=== PATIENT | male | born 1970 | race Caucasian/White ===

== ENCOUNTER 2022-06-15 05:37 | Inpatient (IN) ==
[2022-06-08 11:59] LABS: Basophils % 0.9 % (0.0-0.8); Eosinophils % 1.2 % (0.00-10.9); Hematocrit 40.9 VOL% (42.0-52.0); Hemoglobin 14.2 GM/DL (14.0-18.0); Immature Granulocytes % 3.3 %; Immature Granulocytes Absolute 0.11 #; Lymphocytes # 0.6 10*3/uL (1.4-4.0); Lymphocytes % 17.5 % (21.2-54.2); Mean Corpuscular HGB Conc 34.7 GM/DL (32-36); Mean Platelet Volume 10.3 FL (9.6-12.0); Monocytes # 0.8 10*3/uL (0.11-0.8); Neutrophils % 53.1 % (38.7-73.9); Platelet Count 264 T/CUMM (130-400); Red Blood Count 4.26 MC/CUMM (3.8-5.5); Red Cell Distribution Width 15.4 % (9.3-17.3); White Blood Count 3.4 T/CUMM (4-12)
[2022-06-08 12:22] LABS: Calcium 9.4 MG/DL (8.5-10.1); Osmolality,Calculated 284.1 MOS/KG (273-304); Potassium 5.1 MMOL/L (3.5-5.1)
[2022-06-08 12:30] LABS: Eosinophils 3 % (0-10); Lymphocytes 15 % (20-55); Metamyelocytes 1 %; Total Cells Counted 100
[2022-06-08 12:32] LABS: Polychromasia Slight
[2022-06-08 12:33] LABS: Platelet Estimate Normal
[2022-06-15] MEDS ORDERED: ERTAPENEM 1,000 MG in SODIUM CHLORIDE 0.9% 100 ML IV ONE (06:00)
[2022-06-15] MEDS ORDERED: ALVIMOPAN 12 MG CAPSULE PO ONE (06:00)
[2022-06-15] MEDS ORDERED: MIDAZOLAM 2 MG/2 ML VIAL ONE ×2 (06:16→06:52)
[2022-06-15] MEDS ORDERED: propofoL 200 MG/20 ML VIAL IV ONE (06:16)
[2022-06-15] MEDS ORDERED: LIDOCAINE 2% 5 ML VIAL ONE (06:16)
[2022-06-15] MEDS ORDERED: ROCURONIUM 50 MG/5 ML VIAL IV ONE ×2 (06:16→09:57)
[2022-06-15] MEDS ORDERED: fentaNYL 100 MCG/2 ML VIAL ONE ×3 (06:16→09:02)
[2022-06-15] MEDS ORDERED: ROPIVACAINE 0.5% 30 ML VIAL ONE (06:18)
[2022-06-15] MEDS ORDERED: DEXAMETHASONE 4 MG/1 ML VIAL ONE ×2 (06:18→07:31)
[2022-06-15] MEDS ORDERED: LIDOCAINE 1% 5 ML VIAL ONE (06:18)
[2022-06-15] MEDS ORDERED: GABAPENTIN 400 MG CAPSULE PO ONE (06:23)
[2022-06-15] MEDS ORDERED: ACETAMINOPHEN 500 MG TABLET PO ONE (06:23)
[2022-06-15] MEDS ORDERED: FAMOTIDINE 20 MG TABLET PO ONE (06:23)
[2022-06-15] MEDS ORDERED: GABAPENTIN 400 MG CAPSULE ONE (06:26)
[2022-06-15] MEDS ORDERED: FAMOTIDINE 20 MG TABLET ONE (06:27)
[2022-06-15] MEDS ORDERED: ACETAMINOPHEN 500 MG TABLET ONE (06:27)
[2022-06-15] MEDS ORDERED: LACTATED RINGERS 1,000 ML IV SCH (06:30)
[2022-06-15] MEDS ORDERED: ONDANSETRON 4 MG/2 ML VIAL ONE (07:31)
[2022-06-15] MEDS ORDERED: SUCCINYLCHOLINE 200 MG/10 ML VIAL ONE (07:31)
[2022-06-15] MEDS ORDERED: PHENYLEPHRINE 1 MG/10 ML SYRINGE IV ONE (07:31)
[2022-06-15] MEDS ORDERED: LACTATED RINGERS 1,000 ML IV ONE (07:54)
[2022-06-15] MEDS ORDERED: TISSUE ADHESIVE 1 EACH APPLICATOR TOP ONE (08:09)
[2022-06-15] MEDS ORDERED: INDOCYANINE GREEN 25 MG VIAL IV ONE (08:09)
[2022-06-15] MEDS ORDERED: MINERAL OIL/PETROLATUM OPH OINT 3.5 GM TUBE ONE (10:19)
[2022-06-15] MEDS ORDERED: GLYCOPYRROLATE 0.4 MG/2 ML VIAL ONE (11:24)
[2022-06-15] MEDS ORDERED: NEOSTIGMINE 10 MG/10 ML VIAL ONE (11:25)
[2022-06-15] MEDS ORDERED: HYDROmorphone 1 MG/1 ML SYRINGE ONE (11:37)
[2022-06-15] MEDS ORDERED: SUGAMMADEX 200 MG/2 ML VIAL IV ONE (11:37)
[2022-06-15] MEDS ORDERED: SEVOFLURANE 1 UNIT/15 MINUTE INH ONE (11:40)
[2022-06-15 12:10] LABS: Mucus,Urine Occasional /LPF (Occasional); RBC,Urine 1 /HPF (0-4)
[2022-06-15 12:11] LABS: Glucose,Urine (UA) Negative (Negative); Ketones,Urine Negative (Negative); Protein,Urine Negative (Negative); Urine Appearance Clear (Clear); Urine Color Yellow (Yellow); Urine Specific Gravity 1.025 (1.001-1.035); Urine pH 5.5 (4.5-8.0)
[2022-06-15 12:12] LABS: Bilirubin,Urine Negative (Negative); Blood, Urine Negative (Negative); Nitrite,Urine Negative (Negative); Urine Urobilinogen 0.2 eU/dL (<2.0)
[2022-06-15] MEDS ORDERED: HYDROmorphone 1 MG/1 ML SYRINGE IV PRN (12:14)
[2022-06-15] MEDS ORDERED: ONDANSETRON 4 MG/2 ML VIAL IV PRN ×2 (12:14→12:59)
[2022-06-15] MEDS ORDERED: MEPERIDINE 25 MG/1 ML VIAL IV PRN (12:14)
[2022-06-15] MEDS: KETOROLAC 30 MG/1 ML VIAL IV SCH ×2 (13:50→18:23)
[2022-06-15] MEDS: LACTATED RINGERS 1,000 ML IV SCH (13:54)
[2022-06-15] MEDS: HYDROmorphone 1 MG/1 ML SYRINGE IV PRN ×3 (14:29→20:47)
[2022-06-15 14:54] LABS: Basophils % 0.1 % (0.0-0.8); Hematocrit 37.2 VOL% (42.0-52.0); Hemoglobin 12.3 GM/DL (14.0-18.0); Immature Granulocytes % 0.4 %; Immature Granulocytes Absolute 0.04 #; Lymphocytes # 0.2 10*3/uL (1.4-4.0); Lymphocytes % 2.2 % (21.2-54.2); Mean Corpuscular HGB Conc 33.1 GM/DL (32-36); Mean Corpuscular Volume 97.9 FL (87-102); Mean Platelet Volume 10.4 FL (9.6-12.0); Monocytes # 0.5 10*3/uL (0.11-0.8); Monocytes % 5.1 % (1.7-12.7); Neutrophils % 92.2 % (38.7-73.9); Platelet Count 148 T/CUMM (130-400); Red Cell Distribution Width 14.5 % (9.3-17.3); White Blood Count 9.9 T/CUMM (4-12)
[2022-06-15 15:12] LABS: Calcium 8.2 MG/DL (8.5-10.1); Osmolality,Calculated 279.7 MOS/KG (273-304); Potassium 4.1 MMOL/L (3.5-5.1)
[2022-06-15 15:29] LABS: Band Neutrophils 18 % (0-10); Lymphocytes 5 % (20-55); Platelet Estimate Decreased; Total Cells Counted 100
[2022-06-15] MEDS: ALVIMOPAN 12 MG CAPSULE PO SCH (20:47)
[2022-06-16] MEDS: KETOROLAC 30 MG/1 ML VIAL IV SCH ×4 (02:16→17:59)
[2022-06-16] MEDS: LACTATED RINGERS 1,000 ML IV SCH ×2 (02:20→09:06)
[2022-06-16 05:07] LABS: Hematocrit 34.5 VOL% (42.0-52.0); Hemoglobin 11.4 GM/DL (14.0-18.0); Immature Granulocytes % 0.3 %; Immature Granulocytes Absolute 0.02 #; Lymphocytes # 0.4 10*3/uL (1.4-4.0); Lymphocytes % 6.3 % (21.2-54.2); Mean Corpuscular Volume 98.3 FL (87-102); Mean Platelet Volume 10.8 FL (9.6-12.0); Monocytes # 0.6 10*3/uL (0.11-0.8); Monocytes % 8.6 % (1.7-12.7); Neutrophils % 84.8 % (38.7-73.9); Platelet Count 161 T/CUMM (130-400); Red Blood Count 3.51 MC/CUMM (3.8-5.5); Red Cell Distribution Width 14.4 % (9.3-17.3); White Blood Count 6.7 T/CUMM (4-12)
[2022-06-16 05:29] LABS: Calcium 8.2 MG/DL (8.5-10.1); Osmolality,Calculated 278.5 MOS/KG (273-304); Potassium 3.7 MMOL/L (3.5-5.1)
[2022-06-16 05:31] LABS: Band Neutrophils 1 % (0-10); Lymphocytes 2 % (20-55); Platelet Estimate Adequate; Total Cells Counted 100
[2022-06-16] MEDS: HYDROmorphone 1 MG/1 ML SYRINGE IV PRN (06:22)
[2022-06-16] MEDS ORDERED: NALOXONE 0.4 MG/ML VIAL IV PRN (07:45)
[2022-06-16] MEDS: HYDROmorphone PCA 30 MG/30 ML SYRINGE IV SCH (09:03)
[2022-06-16] MEDS: ALVIMOPAN 12 MG CAPSULE PO SCH ×2 (09:06→21:25)
[2022-06-16] MEDS: ENOXAPARIN 40 MG/0.4 ML SYRINGE SUBCUT SCH (09:06)
[2022-06-16] MEDS: METHOCARBAMOL INJ 500 MG in SODIUM CHLORIDE 0.9% 100 ML IV SCH ×2 (09:06→17:02)
[2022-06-17] MEDS: KETOROLAC 30 MG/1 ML VIAL IV SCH ×4 (00:36→17:59)
[2022-06-17] MEDS: METHOCARBAMOL INJ 500 MG in SODIUM CHLORIDE 0.9% 100 ML IV SCH ×4 (00:38→23:39)
[2022-06-17] MEDS: LOPERAMIDE 2 MG CAPSULE PO PRN ×4 (00:40→18:43)
[2022-06-17 05:32] LABS: Basophils % 0.3 % (0.0-0.8); Eosinophils % 0.4 % (0.00-10.9); Hematocrit 32.3 VOL% (42.0-52.0); Hemoglobin 10.6 GM/DL (14.0-18.0); Immature Granulocytes % 0.4 %; Immature Granulocytes Absolute 0.03 #; Lymphocytes # 0.4 10*3/uL (1.4-4.0); Lymphocytes % 4.6 % (21.2-54.2); Mean Corpuscular HGB Conc 32.8 GM/DL (32-36); Mean Corpuscular Volume 100.6 FL (87-102); Mean Platelet Volume 10.2 FL (9.6-12.0); Monocytes # 0.8 10*3/uL (0.11-0.8); Monocytes % 10.8 % (1.7-12.7); Neutrophils % 83.5 % (38.7-73.9); Platelet Count 132 T/CUMM (130-400); Red Blood Count 3.21 MC/CUMM (3.8-5.5); Red Cell Distribution Width 14.2 % (9.3-17.3); White Blood Count 7.7 T/CUMM (4-12)
[2022-06-17 05:50] LABS: Calcium 8.4 MG/DL (8.5-10.1); Osmolality,Calculated 283.3 MOS/KG (273-304); Potassium 3.7 MMOL/L (3.5-5.1)
[2022-06-17 05:55] LABS: Band Neutrophils 2 % (0-10); Hypochromia Slight; Lymphocytes 7 % (20-55); Microcytosis Slight; Platelet Estimate Normal; Total Cells Counted 100
[2022-06-17] MEDS: PSYLLIUM POWDER 3.7 GM/PACK PO SCH ×2 (08:37→21:44)
[2022-06-17] MEDS: ENOXAPARIN 40 MG/0.4 ML SYRINGE SUBCUT SCH (08:38)
[2022-06-17] MEDS: DEXT 5% NACL 0.45% KCL 40 MEQ 40 MEQ/1,000 ML BAG IV SCH (08:43)
[2022-06-18] MEDS: LOPERAMIDE 2 MG CAPSULE PO PRN ×6 (00:27→19:24)
[2022-06-18] MEDS: KETOROLAC 30 MG/1 ML VIAL IV SCH ×4 (00:32→18:03)
[2022-06-18] MEDS: DEXT 5% NACL 0.45% KCL 40 MEQ 40 MEQ/1,000 ML BAG IV SCH (00:33)
[2022-06-18 05:57] LABS: Basophils % 0.4 % (0.0-0.8); Eosinophils # 0.3 10*3/uL (0.0-0.87); Eosinophils % 3.8 % (0.00-10.9); Hematocrit 28.1 VOL% (42.0-52.0); Hemoglobin 9.3 GM/DL (14.0-18.0); Immature Granulocytes % 0.7 %; Immature Granulocytes Absolute 0.05 #; Lymphocytes # 0.4 10*3/uL (1.4-4.0); Lymphocytes % 5.4 % (21.2-54.2); Mean Corpuscular HGB Conc 33.1 GM/DL (32-36); Mean Corpuscular Volume 100.4 FL (87-102); Mean Platelet Volume 10.4 FL (9.6-12.0); Monocytes # 0.9 10*3/uL (0.11-0.8); Monocytes % 13.7 % (1.7-12.7); Platelet Count 119 T/CUMM (130-400); White Blood Count 6.8 T/CUMM (4-12)
[2022-06-18 06:12] LABS: Calcium 8.1 MG/DL (8.5-10.1); Osmolality,Calculated 277.5 MOS/KG (273-304)
[2022-06-18] MEDS: HYDROmorphone PCA 30 MG/30 ML SYRINGE IV SCH ×2 (07:14→19:58)
[2022-06-18] MEDS: METHOCARBAMOL INJ 500 MG in SODIUM CHLORIDE 0.9% 100 ML IV SCH ×2 (08:31→17:06)
[2022-06-18] MEDS: ENOXAPARIN 40 MG/0.4 ML SYRINGE SUBCUT SCH (08:31)
[2022-06-18] MEDS: PSYLLIUM POWDER 3.7 GM/PACK PO SCH ×2 (08:47→20:30)
[2022-06-19] MEDS: KETOROLAC 30 MG/1 ML VIAL IV SCH ×4 (01:03→18:00)
[2022-06-19] MEDS: METHOCARBAMOL INJ 500 MG in SODIUM CHLORIDE 0.9% 100 ML IV SCH ×3 (01:05→17:23)
[2022-06-19] MEDS: PSYLLIUM POWDER 3.7 GM/PACK PO SCH ×2 (09:11→20:43)
[2022-06-19] MEDS: ENOXAPARIN 40 MG/0.4 ML SYRINGE SUBCUT SCH (09:11)
[2022-06-19] MEDS ORDERED: HYDROmorphone 1 MG/1 ML SYRINGE IV PRN (09:55)
[2022-06-19] MEDS: HYDROmorphone PCA 30 MG/30 ML SYRINGE IV SCH (10:58)
[2022-06-19] MEDS ORDERED: ZALEPLON 5 MG CAPSULE PO PRN (20:11)
[2022-06-20] MEDS: METHOCARBAMOL INJ 500 MG in SODIUM CHLORIDE 0.9% 100 ML IV SCH ×3 (01:25→17:57)
[2022-06-20] MEDS: KETOROLAC 30 MG/1 ML VIAL IV SCH ×2 (01:25→07:36)
[2022-06-20 06:41] LABS: Basophils % 0.2 % (0.0-0.8); Eosinophils # 0.3 10*3/uL (0.0-0.87); Eosinophils % 3.6 % (0.00-10.9); Hematocrit 27.6 VOL% (42.0-52.0); Hemoglobin 9.1 GM/DL (14.0-18.0); Immature Granulocytes % 1.2 %; Immature Granulocytes Absolute 0.11 #; Lymphocytes # 0.4 10*3/uL (1.4-4.0); Lymphocytes % 4.4 % (21.2-54.2); Mean Corpuscular Volume 97.9 FL (87-102); Mean Platelet Volume 9.5 FL (9.6-12.0); Monocytes # 1.4 10*3/uL (0.11-0.8); Monocytes % 14.9 % (1.7-12.7); Neutrophils % 75.7 % (38.7-73.9); Platelet Count 173 T/CUMM (130-400); Red Blood Count 2.82 MC/CUMM (3.8-5.5); Red Cell Distribution Width 13.6 % (9.3-17.3); White Blood Count 9.5 T/CUMM (4-12)
[2022-06-20 06:53] LABS: Calcium 8.3 MG/DL (8.5-10.1); Potassium 3.6 MMOL/L (3.5-5.1)
[2022-06-20 07:20] LABS: Eosinophils 4 % (0-10); Lymphocytes 4 % (20-55); Platelet Estimate Adequate; Total Cells Counted 100
[2022-06-20] MEDS: PSYLLIUM POWDER 3.7 GM/PACK PO SCH ×2 (08:45→20:23)
[2022-06-20] MEDS: ENOXAPARIN 40 MG/0.4 ML SYRINGE SUBCUT SCH (08:46)
[2022-06-21] MEDS: METHOCARBAMOL INJ 500 MG in SODIUM CHLORIDE 0.9% 100 ML IV SCH ×2 (00:06→09:36)
[2022-06-21] MEDS: ENOXAPARIN 40 MG/0.4 ML SYRINGE SUBCUT SCH ×2 (09:36→10:27)
[2022-06-21] MEDS: PSYLLIUM POWDER 3.7 GM/PACK PO SCH (09:37)
[2022-06-21 11:36] VITALS: BP 124/72
== END 2022-06-21 14:10 | disposition home or self-care (01) | DRG 330 ==
LOC: N.OR 05:37 → N.ADMINP 05:37 → N.SDSINP 05:38 → N.ADMINP 11:47 → N.3E 13:31
PROVIDERS: ADMIT Surgery; ATTEND Surgery

== ENCOUNTER 2022-06-22 23:46 | Inpatient (IN) ==
[2022-06-23] MEDS ORDERED: ONDANSETRON 4 MG/2 ML VIAL IV STA (00:12)
[2022-06-23] MEDS ORDERED: PANTOPRAZOLE 40 MG VIAL IV STA (00:12)
[2022-06-23] MEDS ORDERED: HYDROmorphone 1 MG/1 ML SYRINGE IV STA ×2 (00:12→02:10)
[2022-06-23] MEDS ORDERED: SODIUM CHLORIDE 0.9% 1,000 ML IV STA (00:12)
[2022-06-23 00:42] LABS: Basophils % 0.3 % (0.0-0.8); Eosinophils # 0.2 10*3/uL (0.0-0.87); Eosinophils % 1.7 % (0.00-10.9); Hematocrit 35.7 VOL% (42.0-52.0); Hemoglobin 12.1 GM/DL (14.0-18.0); Immature Granulocytes % 1.7 %; Immature Granulocytes Absolute 0.22 #; Lymphocytes # 0.5 10*3/uL (1.4-4.0); Lymphocytes % 3.6 % (21.2-54.2); Mean Corpuscular HGB Conc 33.9 GM/DL (32-36); Mean Corpuscular Volume 96.2 FL (87-102); Mean Platelet Volume 8.9 FL (9.6-12.0); Monocytes % 7.6 % (1.7-12.7); Neutrophils % 85.1 % (38.7-73.9); Platelet Count 352 T/CUMM (130-400); Red Blood Count 3.71 MC/CUMM (3.8-5.5); Red Cell Distribution Width 14.1 % (9.3-17.3); White Blood Count 12.9 T/CUMM (4-12)
[2022-06-23] MEDS ORDERED: SODIUM CHLORIDE 0.9% 100 ML IV ONE (00:48)
[2022-06-23] MEDS ORDERED: PIPERACILLIN/TAZOBACTAM 3,375 MG VIAL IV ONE (00:48)
[2022-06-23 00:57] LABS: Albumin 2.9 G/DL (3.4-5.0); Bilirubin,Total 0.5 MG/DL (0.20-1.00); Calcium 9.5 MG/DL (8.5-10.1); Osmolality,Calculated 275.8 MOS/KG (273-304); Potassium 4.1 MMOL/L (3.5-5.1); Total Protein 7.1 G/DL (6.4-8.2)
[2022-06-23 01:23] LABS: Eosinophils 1 % (0-10); Lymphocytes 4 % (20-55); Platelet Estimate Adequate; Total Cells Counted 100
[2022-06-23] MEDS ORDERED: PIPERACILLIN/TAZOBACTAM 3,375 MG in SODIUM CHLORIDE 0.9% 100 ML IV STA (01:58)
[2022-06-23] MEDS ORDERED: ACETAMINOPHEN 325 MG TABLET PO PRN (03:11)
[2022-06-23] MEDS ORDERED: ONDANSETRON 4 MG/2 ML VIAL IV PRN (03:11)
[2022-06-23] MEDS: HYDROmorphone 1 MG/1 ML SYRINGE IV PRN ×6 (04:20→23:37)
[2022-06-23] MEDS: SODIUM CHLORIDE 0.9% 1,000 ML IV SCH ×4 (04:30→19:06)
[2022-06-23 05:47] LABS: Bilirubin,Urine Negative (Negative); Blood, Urine Negative (Negative); Glucose,Urine (UA) Negative (Negative); Ketones,Urine 15 mg/dL (Negative); Mucus,Urine Occasional /LPF (Occasional); Nitrite,Urine Negative (Negative); Protein,Urine Negative (Negative); RBC,Urine <1 /HPF (0-4); Urine Appearance Clear (Clear); Urine Color Yellow (Yellow); Urine Specific Gravity 1.015 (1.001-1.035); Urine Urobilinogen 0.2 eU/dL (<2.0); Urine pH 5.5 (4.5-8.0)
[2022-06-23] MEDS ORDERED: PIPERACILLIN/TAZOBACTAM 3,375 MG in SODIUM CHLORIDE 0.9% 100 ML IV SCH (09:00)
[2022-06-23] MEDS: PANTOPRAZOLE 40 MG VIAL IV SCH (09:08)
[2022-06-23 09:16] LABS: Basophils % 0.3 % (0.0-0.8); Eosinophils # 0.2 10*3/uL (0.0-0.87); Eosinophils % 1.5 % (0.00-10.9); Hematocrit 29.5 VOL% (42.0-52.0); Hemoglobin 9.7 GM/DL (14.0-18.0); Immature Granulocytes % 0.9 %; Lymphocytes # 0.5 10*3/uL (1.4-4.0); Lymphocytes % 3.9 % (21.2-54.2); Mean Corpuscular HGB Conc 32.9 GM/DL (32-36); Mean Corpuscular Volume 97.7 FL (87-102); Mean Platelet Volume 8.8 FL (9.6-12.0); Monocytes # 0.9 10*3/uL (0.11-0.8); Monocytes % 7.5 % (1.7-12.7); Neutrophils % 85.9 % (38.7-73.9); Platelet Count 317 T/CUMM (130-400); Red Blood Count 3.02 MC/CUMM (3.8-5.5); White Blood Count 11.5 T/CUMM (4-12)
[2022-06-23 09:31] LABS: Eosinophils 1 % (0-10); Hypochromia Slight; Lymphocytes 6 % (20-55); Microcytosis Slight; Platelet Estimate Adequate; Total Cells Counted 100
[2022-06-23 09:32] LABS: Alanine Aminotransferase 38 U/L (16-61); Albumin 2.3 G/DL (3.4-5.0); Alkaline Phosphatase 73 U/L (45-117); Aspartate Amino Transferase 24 U/L (0-37); Bilirubin,Total < 0.39 MG/DL (0.20-1.00); Blood Urea Nitrogen 16 MG/DL (7-18); Calcium 8.5 MG/DL (8.5-10.1); Carbon Dioxide 26 MMOL/L (21-32); Chloride 109 MMOL/L (98-107); Glucose 126 MG/DL (74-106); Osmolality,Calculated 281.4 MOS/KG (273-304); Potassium 4.1 MMOL/L (3.5-5.1); Sodium 140 MMOL/L (136-145); Total Protein 6.5 G/DL (6.4-8.2)
[2022-06-23 12:53] LABS: Hematocrit 30.2 VOL% (42.0-52.0); Hemoglobin 9.8 GM/DL (14.0-18.0)
[2022-06-23] MEDS ORDERED: diphenhydrAMINE 25 MG/10 ML UDCUP PO PRN (12:56)
[2022-06-24] MEDS: HYDROmorphone 1 MG/1 ML SYRINGE IV PRN ×6 (01:33→21:34)
[2022-06-24] MEDS: SODIUM CHLORIDE 0.9% 1,000 ML IV SCH ×4 (01:34→23:30)
[2022-06-24 05:42] LABS: Basophils % 0.2 % (0.0-0.8); Eosinophils # 0.2 10*3/uL (0.0-0.87); Eosinophils % 1.6 % (0.00-10.9); Hemoglobin 8.7 GM/DL (14.0-18.0); Immature Granulocytes % 0.7 %; Lymphocytes # 0.5 10*3/uL (1.4-4.0); Lymphocytes % 3.3 % (21.2-54.2); Mean Corpuscular HGB Conc 32.2 GM/DL (32-36); Mean Corpuscular Volume 100.7 FL (87-102); Monocytes # 0.9 10*3/uL (0.11-0.8); Monocytes % 6.4 % (1.7-12.7); Neutrophils % 87.8 % (38.7-73.9); Platelet Count 331 T/CUMM (130-400); Red Blood Count 2.68 MC/CUMM (3.8-5.5); Red Cell Distribution Width 14.5 % (9.3-17.3); White Blood Count 14.6 T/CUMM (4-12)
[2022-06-24 06:00] LABS: Calcium 8.1 MG/DL (8.5-10.1); Osmolality,Calculated 281.3 MOS/KG (273-304); Potassium 3.9 MMOL/L (3.5-5.1)
[2022-06-24 06:03] LABS: Band Neutrophils 1 % (0-10); Eosinophils 2 % (0-10); Hypochromia Slight; Microcytosis Slight; Platelet Estimate Adequate; Total Cells Counted 100
[2022-06-24] MEDS: PANTOPRAZOLE 40 MG VIAL IV SCH (08:22)
[2022-06-24] MEDS: PIPERACILLIN/TAZOBACTAM 3,375 MG in SODIUM CHLORIDE 0.9% 100 ML IV SCH ×2 (09:20→17:25)
[2022-06-25] MEDS: PIPERACILLIN/TAZOBACTAM 3,375 MG in SODIUM CHLORIDE 0.9% 100 ML IV SCH ×4 (00:16→19:44)
[2022-06-25] MEDS: HYDROmorphone 1 MG/1 ML SYRINGE IV PRN ×6 (00:44→23:27)
[2022-06-25] MEDS: SODIUM CHLORIDE 0.9% 1,000 ML IV SCH ×6 (01:51→21:01)
[2022-06-25 04:59] LABS: Basophils % 0.3 % (0.0-0.8); Eosinophils # 0.3 10*3/uL (0.0-0.87); Eosinophils % 2.1 % (0.00-10.9); Hematocrit 26.4 VOL% (42.0-52.0); Hemoglobin 8.4 GM/DL (14.0-18.0); Immature Granulocytes % 1.3 %; Immature Granulocytes Absolute 0.16 #; Lymphocytes # 0.4 10*3/uL (1.4-4.0); Lymphocytes % 3.5 % (21.2-54.2); Mean Corpuscular HGB Conc 31.8 GM/DL (32-36); Mean Corpuscular Volume 100.4 FL (87-102); Mean Platelet Volume 8.8 FL (9.6-12.0); Monocytes # 0.8 10*3/uL (0.11-0.8); Monocytes % 6.4 % (1.7-12.7); Neutrophils % 86.4 % (38.7-73.9); Platelet Count 351 T/CUMM (130-400); Red Blood Count 2.63 MC/CUMM (3.8-5.5); Red Cell Distribution Width 14.1 % (9.3-17.3); White Blood Count 12.5 T/CUMM (4-12)
[2022-06-25 05:24] LABS: Calcium 8.2 MG/DL (8.5-10.1); Osmolality,Calculated 276.5 MOS/KG (273-304); Potassium 3.7 MMOL/L (3.5-5.1)
[2022-06-25 05:36] LABS: Eosinophils 3 % (0-10); Hypochromia Slight; Lymphocytes 2 % (20-55); Platelet Estimate Adequate; Total Cells Counted 100
[2022-06-25] MEDS: PANTOPRAZOLE 40 MG VIAL IV SCH (09:13)
[2022-06-26] MEDS: PIPERACILLIN/TAZOBACTAM 3,375 MG in SODIUM CHLORIDE 0.9% 100 ML IV SCH ×3 (01:34→18:07)
[2022-06-26] MEDS: SODIUM CHLORIDE 0.9% 1,000 ML IV SCH ×4 (02:01→18:12)
[2022-06-26] MEDS: HYDROmorphone 1 MG/1 ML SYRINGE IV PRN ×4 (03:40→20:43)
[2022-06-26 07:23] LABS: Basophils % 0.3 % (0.0-0.8); Eosinophils # 0.1 10*3/uL (0.0-0.87); Hematocrit 29.3 VOL% (42.0-52.0); Hemoglobin 9.3 GM/DL (14.0-18.0); Immature Granulocytes % 1.4 %; Immature Granulocytes Absolute 0.15 #; Lymphocytes # 0.5 10*3/uL (1.4-4.0); Lymphocytes % 4.3 % (21.2-54.2); Mean Corpuscular HGB Conc 31.7 GM/DL (32-36); Mean Corpuscular Volume 100.3 FL (87-102); Mean Platelet Volume 8.6 FL (9.6-12.0); Monocytes # 0.7 10*3/uL (0.11-0.8); Platelet Count 425 T/CUMM (130-400); Red Blood Count 2.92 MC/CUMM (3.8-5.5); White Blood Count 10.9 T/CUMM (4-12)
[2022-06-26 07:54] LABS: Band Neutrophils 1 % (0-10); Lymphocytes 2 % (20-55); Metamyelocytes 1 %; Total Cells Counted 100
[2022-06-26] MEDS: PANTOPRAZOLE 40 MG VIAL IV SCH (09:39)
[2022-06-27] MEDS: SODIUM CHLORIDE 0.9% 1,000 ML IV SCH ×4 (00:07→20:30)
[2022-06-27] MEDS: PIPERACILLIN/TAZOBACTAM 3,375 MG in SODIUM CHLORIDE 0.9% 100 ML IV SCH ×3 (00:08→16:07)
[2022-06-27] MEDS: HYDROmorphone 1 MG/1 ML SYRINGE IV PRN ×6 (01:03→22:59)
[2022-06-27 04:59] LABS: Basophils # 0.1 10*3/uL (0.0-0.2); Basophils % 0.6 % (0.0-0.8); Eosinophils # 0.1 10*3/uL (0.0-0.87); Eosinophils % 1.1 % (0.00-10.9); Hematocrit 30.9 VOL% (42.0-52.0); Immature Granulocytes % 1.8 %; Immature Granulocytes Absolute 0.16 #; Lymphocytes # 0.6 10*3/uL (1.4-4.0); Lymphocytes % 6.5 % (21.2-54.2); Mean Corpuscular HGB Conc 32.4 GM/DL (32-36); Mean Corpuscular Volume 98.4 FL (87-102); Mean Platelet Volume 9.2 FL (9.6-12.0); Monocytes # 0.7 10*3/uL (0.11-0.8); Platelet Count 550 T/CUMM (130-400); Red Blood Count 3.14 MC/CUMM (3.8-5.5); Red Cell Distribution Width 13.8 % (9.3-17.3)
[2022-06-27] MEDS: PANTOPRAZOLE 40 MG VIAL IV SCH (08:56)
[2022-06-28] MEDS: PIPERACILLIN/TAZOBACTAM 3,375 MG in SODIUM CHLORIDE 0.9% 100 ML IV SCH (01:11)
[2022-06-28] MEDS: HYDROmorphone 1 MG/1 ML SYRINGE IV PRN ×5 (01:16→21:49)
[2022-06-28] MEDS: SODIUM CHLORIDE 0.9% 1,000 ML IV SCH (06:34)
[2022-06-28] MEDS: ENOXAPARIN 40 MG/0.4 ML SYRINGE SUBCUT SCH (09:57)
[2022-06-28] MEDS: CEFUROXIME 500 MG TABLET PO SCH ×2 (09:57→20:21)
[2022-06-28] MEDS: PANTOPRAZOLE 40 MG VIAL IV SCH (09:57)
[2022-06-29] MEDS: HYDROmorphone 1 MG/1 ML SYRINGE IV PRN ×6 (00:56→23:15)
[2022-06-29 05:03] LABS: Basophils # 0.1 10*3/uL (0.0-0.2); Basophils % 0.8 % (0.0-0.8); Eosinophils # 0.1 10*3/uL (0.0-0.87); Eosinophils % 1.3 % (0.00-10.9); Hematocrit 26.3 VOL% (42.0-52.0); Hemoglobin 8.5 GM/DL (14.0-18.0); Immature Granulocytes % 1.8 %; Immature Granulocytes Absolute 0.11 #; Lymphocytes # 0.6 10*3/uL (1.4-4.0); Lymphocytes % 9.8 % (21.2-54.2); Mean Corpuscular HGB Conc 32.3 GM/DL (32-36); Mean Corpuscular Volume 97.4 FL (87-102); Mean Platelet Volume 8.8 FL (9.6-12.0); Monocytes # 0.7 10*3/uL (0.11-0.8); Neutrophils % 74.3 % (38.7-73.9); Platelet Count 560 T/CUMM (130-400); Red Cell Distribution Width 13.6 % (9.3-17.3); White Blood Count 6.2 T/CUMM (4-12)
[2022-06-29 05:15] LABS: Calcium 8.5 MG/DL (8.5-10.1); Osmolality,Calculated 277.3 MOS/KG (273-304); Potassium 3.5 MMOL/L (3.5-5.1)
[2022-06-29] MEDS: ENOXAPARIN 40 MG/0.4 ML SYRINGE SUBCUT SCH (08:37)
[2022-06-29] MEDS: CEFUROXIME 500 MG TABLET PO SCH ×2 (08:37→20:03)
[2022-06-29] MEDS: PANTOPRAZOLE 40 MG VIAL IV SCH (08:38)
[2022-06-29] MEDS: TAMSULOSIN 0.4 MG CAPSULE PO SCH ×2 (12:51→20:03)
[2022-06-29] MEDS: oxyCODONE/ACETAMINOPHEN 5-325 MG TABLET PO PRN (12:51)
[2022-06-30] MEDS: HYDROmorphone 1 MG/1 ML SYRINGE IV PRN ×3 (04:11→17:57)
[2022-06-30] MEDS: PANTOPRAZOLE 40 MG VIAL IV SCH (08:05)
[2022-06-30] MEDS: TAMSULOSIN 0.4 MG CAPSULE PO SCH ×2 (08:05→21:00)
[2022-06-30] MEDS: CEFUROXIME 500 MG TABLET PO SCH ×2 (08:05→21:00)
[2022-06-30] MEDS: ENOXAPARIN 40 MG/0.4 ML SYRINGE SUBCUT SCH (08:05)
[2022-06-30] MEDS: oxyCODONE/ACETAMINOPHEN 5-325 MG TABLET PO PRN ×3 (08:05→21:00)
[2022-07-01] MEDS: HYDROmorphone 1 MG/1 ML SYRINGE IV PRN ×2 (00:37→11:44)
[2022-07-01] MEDS: oxyCODONE/ACETAMINOPHEN 5-325 MG TABLET PO PRN ×2 (04:50→09:35)
[2022-07-01] MEDS: CEFUROXIME 500 MG TABLET PO SCH (09:35)
[2022-07-01] MEDS: TAMSULOSIN 0.4 MG CAPSULE PO SCH (09:36)
[2022-07-01] MEDS: ENOXAPARIN 40 MG/0.4 ML SYRINGE SUBCUT SCH (09:36)
[2022-07-01] MEDS: PANTOPRAZOLE 40 MG VIAL IV SCH (09:36)
[2022-07-01 12:12] VITALS: BP 121/64
== END 2022-07-01 15:20 | disposition home or self-care (01) | DRG 394 ==
LOC: N.ED 23:46 → N.EDINP 06-23 02:02 → N.2E 06-23 12:32
PROVIDERS: ADMIT Surgery; ATTEND Surgery

== ENCOUNTER 2022-07-09 16:52 | Inpatient (IN) ==
[2022-07-09] MEDS ORDERED: PANTOPRAZOLE 40 MG VIAL IV STA (19:45)
[2022-07-09] MEDS ORDERED: SODIUM CHLORIDE 0.9% 1,000 ML IV STA (19:45)
[2022-07-09] MEDS ORDERED: HYDROmorphone 1 MG/1 ML SYRINGE IV STA (19:45)
[2022-07-09] MEDS ORDERED: ONDANSETRON 4 MG/2 ML VIAL IV STA (19:45)
[2022-07-09] MEDS ORDERED: METOCLOPRAMIDE 10 MG/2 ML VIAL IV STA (19:45)
[2022-07-09 19:53] LABS: Basophils % 0.4 % (0.0-0.8); Eosinophils % 0.3 % (0.00-10.9); Hematocrit 31.2 VOL% (42.0-52.0); Immature Granulocytes % 0.5 %; Immature Granulocytes Absolute 0.04 #; Lymphocytes # 0.6 10*3/uL (1.4-4.0); Lymphocytes % 7.9 % (21.2-54.2); Mean Corpuscular HGB Conc 32.1 GM/DL (32-36); Mean Corpuscular Volume 94.8 FL (87-102); Mean Platelet Volume 8.4 FL (9.6-12.0); Monocytes # 1.1 10*3/uL (0.11-0.8); Monocytes % 13.9 % (1.7-12.7); Platelet Count 354 T/CUMM (130-400); Red Blood Count 3.29 MC/CUMM (3.8-5.5); Red Cell Distribution Width 14.6 % (9.3-17.3); White Blood Count 7.6 T/CUMM (4-12)
[2022-07-09 20:16] LABS: Alanine Aminotransferase 33 U/L (16-61); Albumin 3.1 G/DL (3.4-5.0); Alkaline Phosphatase 93 U/L (45-117); Aspartate Amino Transferase 14 U/L (0-37); Bilirubin,Total < 0.39 MG/DL (0.20-1.00); Blood Urea Nitrogen 17 MG/DL (7-18); Calcium 9.7 MG/DL (8.5-10.1); Carbon Dioxide 28 MMOL/L (21-32); Chloride 103 MMOL/L (98-107); Glucose 97 MG/DL (74-106); Osmolality,Calculated 278.5 MOS/KG (273-304); Potassium 4.3 MMOL/L (3.5-5.1); Sodium 139 MMOL/L (136-145); Total Protein 7.5 G/DL (6.4-8.2)
[2022-07-09] MEDS ORDERED: cefOXitin 1,000 MG in SODIUM CHLORIDE 0.9% 100 ML IV STA (22:13)
[2022-07-09] MEDS ORDERED: ACETAMINOPHEN 325 MG TABLET PO PRN (22:15)
[2022-07-09] MEDS ORDERED: ONDANSETRON 4 MG/2 ML VIAL IV PRN (22:15)
[2022-07-09] MEDS: HYDROmorphone 1 MG/1 ML SYRINGE IV PRN (22:49)
[2022-07-09] MEDS: LACTATED RINGERS 1,000 ML IV SCH (23:37)
[2022-07-10] MEDS: HYDROmorphone 1 MG/1 ML SYRINGE IV PRN ×5 (02:45→20:12)
[2022-07-10 06:18] LABS: Basophils % 0.3 % (0.0-0.8); Eosinophils % 0.5 % (0.00-10.9); Hematocrit 27.7 VOL% (42.0-52.0); Hemoglobin 8.9 GM/DL (14.0-18.0); Immature Granulocytes % 0.5 %; Immature Granulocytes Absolute 0.03 #; Lymphocytes # 0.6 10*3/uL (1.4-4.0); Lymphocytes % 9.6 % (21.2-54.2); Mean Corpuscular HGB Conc 32.1 GM/DL (32-36); Mean Corpuscular Volume 94.5 FL (87-102); Mean Platelet Volume 8.5 FL (9.6-12.0); Monocytes # 0.9 10*3/uL (0.11-0.8); Neutrophils % 75.1 % (38.7-73.9); Platelet Count 322 T/CUMM (130-400); Red Blood Count 2.93 MC/CUMM (3.8-5.5); Red Cell Distribution Width 14.6 % (9.3-17.3); White Blood Count 6.6 T/CUMM (4-12)
[2022-07-10 06:34] LABS: Calcium 9.4 MG/DL (8.5-10.1); Osmolality,Calculated 275.5 MOS/KG (273-304); Potassium 4.1 MMOL/L (3.5-5.1)
[2022-07-10] MEDS: LACTATED RINGERS 1,000 ML IV SCH ×4 (07:37→16:04)
[2022-07-10] MEDS: PANTOPRAZOLE 40 MG TABLET PO SCH (08:23)
[2022-07-10] MEDS: oxyCODONE/ACETAMINOPHEN 5-325 MG TABLET PO PRN ×3 (08:51→17:35)
[2022-07-10] MEDS: DICYCLOMINE 10 MG CAPSULE PO SCH ×4 (08:51→20:08)
[2022-07-10] MEDS ORDERED: LIDOCAINE 2% TOP JELLY 20 ML VIAL INTRAURETH PRN (09:45)
[2022-07-10] MEDS: TAMSULOSIN 0.4 MG CAPSULE PO SCH ×2 (10:30→20:12)
[2022-07-10 13:11] LABS: Bilirubin,Urine Negative (Negative); Blood, Urine Negative (Negative); Glucose,Urine (UA) Negative (Negative); Ketones,Urine Negative (Negative); Nitrite,Urine Negative (Negative); Protein,Urine Negative (Negative); Urine Appearance Clear (Clear); Urine Color Yellow (Yellow); Urine Urobilinogen 0.2 eU/dL (<2.0); Urine pH 7.5 (4.5-8.0)
[2022-07-10 13:14] LABS: Amorphous Crystals,Urine Occasional /HPF (Few); Mucus,Urine Occasional /LPF (Occasional); RBC,Urine 20 /HPF (0-4)
[2022-07-11] MEDS: HYDROmorphone 1 MG/1 ML SYRINGE IV PRN ×6 (00:30→22:27)
[2022-07-11] MEDS: oxyCODONE/ACETAMINOPHEN 5-325 MG TABLET PO PRN ×4 (02:13→20:31)
[2022-07-11] MEDS: LACTATED RINGERS 1,000 ML IV SCH ×4 (02:13→23:52)
[2022-07-11 05:52] LABS: Basophils % 0.3 % (0.0-0.8); Eosinophils # 0.1 10*3/uL (0.0-0.87); Eosinophils % 1.2 % (0.00-10.9); Hematocrit 25.9 VOL% (42.0-52.0); Hemoglobin 8.2 GM/DL (14.0-18.0); Immature Granulocytes % 0.3 %; Immature Granulocytes Absolute 0.02 #; Lymphocytes # 0.5 10*3/uL (1.4-4.0); Lymphocytes % 7.4 % (21.2-54.2); Mean Corpuscular HGB Conc 31.7 GM/DL (32-36); Mean Corpuscular Volume 93.8 FL (87-102); Mean Platelet Volume 8.6 FL (9.6-12.0); Monocytes # 0.9 10*3/uL (0.11-0.8); Monocytes % 12.4 % (1.7-12.7); Neutrophils % 78.4 % (38.7-73.9); Platelet Count 323 T/CUMM (130-400); Red Blood Count 2.76 MC/CUMM (3.8-5.5); Red Cell Distribution Width 14.7 % (9.3-17.3); White Blood Count 7.3 T/CUMM (4-12)
[2022-07-11 06:11] LABS: Alanine Aminotransferase 30 U/L (16-61); Albumin 2.6 G/DL (3.4-5.0); Alkaline Phosphatase 91 U/L (45-117); Aspartate Amino Transferase 16 U/L (0-37); Bilirubin,Total < 0.39 MG/DL (0.20-1.00); Blood Urea Nitrogen 12 MG/DL (7-18); Calcium 9.2 MG/DL (8.5-10.1); Carbon Dioxide 26 MMOL/L (21-32); Chloride 106 MMOL/L (98-107); Glucose 118 MG/DL (74-106); Osmolality,Calculated 275.7 MOS/KG (273-304); Potassium 3.9 MMOL/L (3.5-5.1); Sodium 138 MMOL/L (136-145); Total Protein 7.3 G/DL (6.4-8.2)
[2022-07-11] MEDS: DICYCLOMINE 10 MG CAPSULE PO SCH ×4 (09:05→20:32)
[2022-07-11] MEDS: TAMSULOSIN 0.4 MG CAPSULE PO SCH ×2 (09:05→20:32)
[2022-07-11] MEDS: PANTOPRAZOLE 40 MG TABLET PO SCH (09:05)
[2022-07-12] MEDS: oxyCODONE/ACETAMINOPHEN 5-325 MG TABLET PO PRN ×3 (01:30→20:54)
[2022-07-12] MEDS: HYDROmorphone 1 MG/1 ML SYRINGE IV PRN ×4 (02:42→22:22)
[2022-07-12] MEDS: PANTOPRAZOLE 40 MG TABLET PO SCH (10:34)
[2022-07-12] MEDS: LACTATED RINGERS 1,000 ML IV SCH ×3 (10:34→22:26)
[2022-07-12] MEDS: TAMSULOSIN 0.4 MG CAPSULE PO SCH ×2 (10:34→20:53)
[2022-07-12] MEDS: DICYCLOMINE 10 MG CAPSULE PO SCH ×4 (10:34→20:53)
[2022-07-12] MEDS ORDERED: MIDAZOLAM 2 MG/2 ML VIAL IV ONE (11:03)
[2022-07-12] MEDS ORDERED: fentaNYL 100 MCG/2 ML VIAL IV ONE (11:03)
[2022-07-12] MEDS ORDERED: DIAZEPAM 5 MG TABLET PO ONE (11:03)
[2022-07-12] MEDS ORDERED: SODIUM CHLORIDE 0.45% 1,000 ML IV SCH (11:30)
[2022-07-13] MEDS: HYDROmorphone 1 MG/1 ML SYRINGE IV PRN ×6 (01:31→21:14)
[2022-07-13] MEDS: LACTATED RINGERS 1,000 ML IV SCH (07:14)
[2022-07-13] MEDS: PANTOPRAZOLE 40 MG TABLET PO SCH (08:00)
[2022-07-13] MEDS: DICYCLOMINE 10 MG CAPSULE PO SCH ×4 (08:00→21:12)
[2022-07-13] MEDS: oxyCODONE/ACETAMINOPHEN 5-325 MG TABLET PO PRN ×4 (08:30→22:59)
[2022-07-13] MEDS ORDERED: NALOXONE 0.4 MG/ML VIAL IV PRN (16:37)
[2022-07-13] MEDS ORDERED: HYDROmorphone PCA 30 MG/30 ML SYRINGE IV SCH (17:00)
[2022-07-13] MEDS ORDERED: HYDROmorphone 1 MG/1 ML SYRINGE IM PRN (20:39)
[2022-07-13] MEDS: TAMSULOSIN 0.4 MG CAPSULE PO SCH (21:12)
[2022-07-14] MEDS: HYDROmorphone 1 MG/1 ML SYRINGE IV PRN ×7 (03:07→23:09)
[2022-07-14] MEDS: oxyCODONE/ACETAMINOPHEN 5-325 MG TABLET PO PRN ×5 (04:45→22:11)
[2022-07-14] MEDS: PANTOPRAZOLE 40 MG TABLET PO SCH (09:18)
[2022-07-14] MEDS: DICYCLOMINE 10 MG CAPSULE PO SCH ×4 (09:18→20:14)
[2022-07-14] MEDS: CIPROFLOXACIN INJ 400 MG/200 ML PREMIX IV SCH (14:32)
[2022-07-14] MEDS: TAMSULOSIN 0.4 MG CAPSULE PO SCH (20:14)
[2022-07-14] MEDS: LOPERAMIDE 2 MG CAPSULE PO PRN (20:16)
[2022-07-15] MEDS: CIPROFLOXACIN INJ 400 MG/200 ML PREMIX IV SCH (02:47)
[2022-07-15] MEDS: HYDROmorphone 1 MG/1 ML SYRINGE IV PRN ×7 (02:55→22:26)
[2022-07-15] MEDS: oxyCODONE/ACETAMINOPHEN 5-325 MG TABLET PO PRN ×3 (04:32→17:53)
[2022-07-15] MEDS: PANTOPRAZOLE 40 MG TABLET PO SCH (08:21)
[2022-07-15] MEDS: DICYCLOMINE 10 MG CAPSULE PO SCH ×4 (08:21→21:01)
[2022-07-15] MEDS: CIPROFLOXACIN 500 MG TABLET PO SCH ×2 (09:39→16:03)
[2022-07-15] MEDS: LOPERAMIDE 2 MG CAPSULE PO PRN (16:05)
[2022-07-15] MEDS: GABAPENTIN 100 MG CAPSULE PO SCH (21:00)
[2022-07-15] MEDS: TAMSULOSIN 0.4 MG CAPSULE PO SCH (21:01)
[2022-07-15] MEDS: MORPHINE ER 30 MG TABLET PO SCH (21:01)
[2022-07-16] MEDS: oxyCODONE/ACETAMINOPHEN 5-325 MG TABLET PO PRN ×4 (00:32→22:57)
[2022-07-16] MEDS: HYDROmorphone 1 MG/1 ML SYRINGE IV PRN ×7 (01:29→20:42)
[2022-07-16] MEDS: PANTOPRAZOLE 40 MG TABLET PO SCH (09:25)
[2022-07-16] MEDS: DICYCLOMINE 10 MG CAPSULE PO SCH ×4 (09:25→21:02)
[2022-07-16] MEDS: TAMSULOSIN 0.4 MG CAPSULE PO SCH ×2 (09:25→21:02)
[2022-07-16] MEDS: MORPHINE ER 30 MG TABLET PO SCH ×2 (09:25→21:03)
[2022-07-16] MEDS: GABAPENTIN 100 MG CAPSULE PO SCH ×3 (09:25→21:03)
[2022-07-16] MEDS: CIPROFLOXACIN 500 MG TABLET PO SCH ×2 (09:25→16:18)
[2022-07-16] MEDS ORDERED: MORPHINE ER 30 MG TABLET PO ONE (11:30)
[2022-07-17] MEDS: HYDROmorphone 1 MG/1 ML SYRINGE IV PRN ×6 (04:31→20:39)
[2022-07-17] MEDS: oxyCODONE/ACETAMINOPHEN 5-325 MG TABLET PO PRN ×4 (06:25→22:45)
[2022-07-17] MEDS: TAMSULOSIN 0.4 MG CAPSULE PO SCH ×2 (08:41→21:43)
[2022-07-17] MEDS: PANTOPRAZOLE 40 MG TABLET PO SCH (08:41)
[2022-07-17] MEDS: GABAPENTIN 100 MG CAPSULE PO SCH ×3 (08:41→21:43)
[2022-07-17] MEDS: MORPHINE ER 30 MG TABLET PO SCH ×2 (08:41→21:43)
[2022-07-17] MEDS: CIPROFLOXACIN 500 MG TABLET PO SCH ×2 (08:41→16:00)
[2022-07-17] MEDS: DICYCLOMINE 10 MG CAPSULE PO SCH ×4 (08:42→21:43)
[2022-07-18] MEDS: HYDROmorphone 1 MG/1 ML SYRINGE IV PRN ×6 (00:35→22:11)
[2022-07-18] MEDS: MORPHINE ER 30 MG TABLET PO SCH ×2 (08:07→22:12)
[2022-07-18] MEDS: GABAPENTIN 100 MG CAPSULE PO SCH ×3 (08:07→22:12)
[2022-07-18] MEDS: oxyCODONE/ACETAMINOPHEN 5-325 MG TABLET PO PRN ×3 (08:07→20:36)
[2022-07-18] MEDS: TAMSULOSIN 0.4 MG CAPSULE PO SCH ×2 (08:07→22:12)
[2022-07-18] MEDS: DICYCLOMINE 10 MG CAPSULE PO SCH ×4 (08:07→22:12)
[2022-07-18] MEDS: CIPROFLOXACIN 500 MG TABLET PO SCH ×2 (08:07→16:14)
[2022-07-18] MEDS: PANTOPRAZOLE 40 MG TABLET PO SCH (08:07)
[2022-07-19] MEDS: HYDROmorphone 1 MG/1 ML SYRINGE IV PRN ×5 (02:13→22:06)
[2022-07-19] MEDS: CIPROFLOXACIN 500 MG TABLET PO SCH ×2 (08:34→17:04)
[2022-07-19] MEDS: PANTOPRAZOLE 40 MG TABLET PO SCH (08:34)
[2022-07-19] MEDS: DICYCLOMINE 10 MG CAPSULE PO SCH ×4 (08:34→21:01)
[2022-07-19] MEDS: TAMSULOSIN 0.4 MG CAPSULE PO SCH ×2 (08:34→21:02)
[2022-07-19] MEDS: MORPHINE ER 30 MG TABLET PO SCH ×2 (08:34→21:02)
[2022-07-19] MEDS: GABAPENTIN 100 MG CAPSULE PO SCH (08:35)
[2022-07-19] MEDS: oxyCODONE/ACETAMINOPHEN 5-325 MG TABLET PO PRN ×3 (08:38→19:51)
[2022-07-19] MEDS ORDERED: MORPHINE ER 30 MG TABLET PO ONE (12:30)
[2022-07-19] MEDS: GABAPENTIN 300 MG CAPSULE PO SCH ×2 (15:50→21:02)
[2022-07-19] MEDS: LOPERAMIDE 2 MG CAPSULE PO PRN (22:23)
[2022-07-20] MEDS: HYDROmorphone 1 MG/1 ML SYRINGE IV PRN ×5 (02:48→23:45)
[2022-07-20] MEDS: GABAPENTIN 300 MG CAPSULE PO SCH ×3 (08:57→20:43)
[2022-07-20] MEDS: DICYCLOMINE 10 MG CAPSULE PO SCH ×4 (08:57→20:42)
[2022-07-20] MEDS: CIPROFLOXACIN 500 MG TABLET PO SCH ×2 (08:58→17:26)
[2022-07-20] MEDS: PANTOPRAZOLE 40 MG TABLET PO SCH (08:58)
[2022-07-20] MEDS: oxyCODONE/ACETAMINOPHEN 5-325 MG TABLET PO PRN ×3 (08:58→22:05)
[2022-07-20] MEDS: TAMSULOSIN 0.4 MG CAPSULE PO SCH ×2 (08:58→20:42)
[2022-07-20] MEDS: MORPHINE ER 30 MG TABLET PO SCH ×2 (08:59→20:43)
[2022-07-20] MEDS: LOPERAMIDE 2 MG CAPSULE PO PRN ×3 (09:02→19:15)
[2022-07-21] MEDS: oxyCODONE/ACETAMINOPHEN 5-325 MG TABLET PO PRN ×4 (01:59→20:05)
[2022-07-21] MEDS: LOPERAMIDE 2 MG CAPSULE PO PRN ×4 (02:13→20:05)
[2022-07-21] MEDS: HYDROmorphone 1 MG/1 ML SYRINGE IV PRN ×4 (04:05→22:18)
[2022-07-21] MEDS: GABAPENTIN 300 MG CAPSULE PO SCH ×3 (09:28→20:04)
[2022-07-21] MEDS: DICYCLOMINE 10 MG CAPSULE PO SCH ×4 (09:28→20:05)
[2022-07-21] MEDS: MORPHINE ER 30 MG TABLET PO SCH ×2 (09:28→21:14)
[2022-07-21] MEDS: TAMSULOSIN 0.4 MG CAPSULE PO SCH ×2 (09:28→20:04)
[2022-07-21] MEDS: ERTAPENEM 1,000 MG in SODIUM CHLORIDE 0.9% 100 ML IV SCH (09:32)
[2022-07-21] MEDS: PANTOPRAZOLE 40 MG TABLET PO SCH (13:04)
[2022-07-21] MEDS ORDERED: KETOROLAC 30 MG/1 ML VIAL IV ONE (17:41)
[2022-07-21] MEDS ORDERED: HYDROmorphone 1 MG/1 ML SYRINGE IV ONE (17:41)
[2022-07-22] MEDS: oxyCODONE/ACETAMINOPHEN 5-325 MG TABLET PO PRN ×4 (00:28→23:01)
[2022-07-22] MEDS: HYDROmorphone 1 MG/1 ML SYRINGE IV PRN ×4 (04:33→19:50)
[2022-07-22] MEDS: DICYCLOMINE 10 MG CAPSULE PO SCH ×4 (09:22→21:14)
[2022-07-22] MEDS: PANTOPRAZOLE 40 MG TABLET PO SCH (09:22)
[2022-07-22] MEDS: LOPERAMIDE 2 MG CAPSULE PO PRN ×4 (09:23→21:25)
[2022-07-22] MEDS: ERTAPENEM 1,000 MG in SODIUM CHLORIDE 0.9% 100 ML IV SCH (09:23)
[2022-07-22] MEDS: MORPHINE ER 30 MG TABLET PO SCH ×2 (09:23→21:14)
[2022-07-22] MEDS: TAMSULOSIN 0.4 MG CAPSULE PO SCH ×2 (09:23→21:14)
[2022-07-22] MEDS: GABAPENTIN 300 MG CAPSULE PO SCH ×3 (09:23→21:14)
[2022-07-23] MEDS: DICYCLOMINE 10 MG CAPSULE PO SCH ×4 (09:40→21:20)
[2022-07-23] MEDS: BACILLUS COAGULANS CAPLET PO SCH (09:40)
[2022-07-23] MEDS: GABAPENTIN 300 MG CAPSULE PO SCH ×3 (09:40→21:20)
[2022-07-23] MEDS: MORPHINE ER 30 MG TABLET PO SCH ×2 (09:40→21:20)
[2022-07-23] MEDS: PANTOPRAZOLE 40 MG TABLET PO SCH (09:40)
[2022-07-23] MEDS: TAMSULOSIN 0.4 MG CAPSULE PO SCH ×2 (09:40→21:20)
[2022-07-23] MEDS: ERTAPENEM 1,000 MG in SODIUM CHLORIDE 0.9% 100 ML IV SCH (09:41)
[2022-07-23] MEDS: HYDROmorphone 1 MG/1 ML SYRINGE IV PRN ×3 (10:49→20:21)
[2022-07-23] MEDS: LOPERAMIDE 2 MG CAPSULE PO PRN ×2 (14:11→22:42)
[2022-07-23] MEDS: oxyCODONE/ACETAMINOPHEN 5-325 MG TABLET PO PRN ×3 (14:11→22:59)
[2022-07-24] MEDS: LOPERAMIDE 2 MG CAPSULE PO PRN ×8 (00:27→23:50)
[2022-07-24] MEDS: HYDROmorphone 1 MG/1 ML SYRINGE IV PRN ×6 (00:27→23:26)
[2022-07-24] MEDS: oxyCODONE/ACETAMINOPHEN 5-325 MG TABLET PO PRN ×3 (06:42→16:20)
[2022-07-24] MEDS: GABAPENTIN 300 MG CAPSULE PO SCH ×3 (08:20→21:45)
[2022-07-24] MEDS: MORPHINE ER 30 MG TABLET PO SCH ×2 (08:21→21:45)
[2022-07-24] MEDS: PANTOPRAZOLE 40 MG TABLET PO SCH (08:21)
[2022-07-24] MEDS: TAMSULOSIN 0.4 MG CAPSULE PO SCH ×2 (08:21→21:45)
[2022-07-24] MEDS: BACILLUS COAGULANS CAPLET PO SCH (08:21)
[2022-07-24] MEDS: DICYCLOMINE 10 MG CAPSULE PO SCH ×4 (08:22→21:45)
[2022-07-24] MEDS: ERTAPENEM 1,000 MG in SODIUM CHLORIDE 0.9% 100 ML IV SCH (08:26)
[2022-07-24] MEDS ORDERED: KETOROLAC 30 MG/1 ML VIAL IV PRN (14:24)
[2022-07-24] MEDS ORDERED: HYDROmorphone 1 MG/1 ML SYRINGE IV PRN (14:25)
[2022-07-24] MEDS: diphenhydrAMINE CAP 25 MG CAPSULE PO PRN (19:19)
[2022-07-25] MEDS: LOPERAMIDE 2 MG CAPSULE PO PRN ×2 (03:31→06:06)
[2022-07-25] MEDS: HYDROmorphone 1 MG/1 ML SYRINGE IV PRN ×5 (03:32→21:43)
[2022-07-25] MEDS: oxyCODONE/ACETAMINOPHEN 5-325 MG TABLET PO PRN ×2 (06:07→19:59)
[2022-07-25 08:52] LABS: Basophils % 0.3 % (0.0-0.8); Eosinophils # 0.1 10*3/uL (0.0-0.87); Eosinophils % 1.2 % (0.00-10.9); Hematocrit 26.5 VOL% (42.0-52.0); Hemoglobin 8.3 GM/DL (14.0-18.0); Immature Granulocytes % 1.1 %; Immature Granulocytes Absolute 0.08 #; Lymphocytes # 0.4 10*3/uL (1.4-4.0); Lymphocytes % 5.6 % (21.2-54.2); Mean Corpuscular HGB Conc 31.3 GM/DL (32-36); Mean Corpuscular Volume 90.8 FL (87-102); Mean Platelet Volume 8.2 FL (9.6-12.0); Monocytes # 0.9 10*3/uL (0.11-0.8); Neutrophils % 79.8 % (38.7-73.9); Platelet Count 457 T/CUMM (130-400); Red Blood Count 2.92 MC/CUMM (3.8-5.5); Red Cell Distribution Width 16.4 % (9.3-17.3); White Blood Count 7.3 T/CUMM (4-12)
[2022-07-25 09:04] LABS: Calcium 9.2 MG/DL (8.5-10.1); Potassium 4.3 MMOL/L (3.5-5.1)
[2022-07-25] MEDS: GABAPENTIN 300 MG CAPSULE PO SCH ×3 (09:34→21:43)
[2022-07-25] MEDS: DICYCLOMINE 10 MG CAPSULE PO SCH ×4 (09:34→21:43)
[2022-07-25] MEDS: BACILLUS COAGULANS CAPLET PO SCH (09:34)
[2022-07-25] MEDS: TAMSULOSIN 0.4 MG CAPSULE PO SCH ×2 (09:35→21:43)
[2022-07-25] MEDS: MORPHINE ER 30 MG TABLET PO SCH ×2 (09:35→21:41)
[2022-07-25] MEDS: PANTOPRAZOLE 40 MG TABLET PO SCH (09:35)
[2022-07-25] MEDS: ERTAPENEM 1,000 MG in SODIUM CHLORIDE 0.9% 100 ML IV SCH (09:36)
[2022-07-25] MEDS: diphenhydrAMINE CAP 25 MG CAPSULE PO PRN ×2 (09:38→17:02)
[2022-07-26] MEDS: HYDROmorphone 1 MG/1 ML SYRINGE IV PRN ×3 (06:30→18:00)
[2022-07-26] MEDS: BACILLUS COAGULANS CAPLET PO SCH (09:02)
[2022-07-26] MEDS: GABAPENTIN 300 MG CAPSULE PO SCH ×3 (09:02→21:10)
[2022-07-26] MEDS: DICYCLOMINE 10 MG CAPSULE PO SCH ×4 (09:03→21:10)
[2022-07-26] MEDS: TAMSULOSIN 0.4 MG CAPSULE PO SCH ×2 (09:03→21:10)
[2022-07-26] MEDS: MORPHINE ER 30 MG TABLET PO SCH ×2 (09:03→21:10)
[2022-07-26] MEDS: PANTOPRAZOLE 40 MG TABLET PO SCH (09:03)
[2022-07-26] MEDS: ERTAPENEM 1,000 MG in SODIUM CHLORIDE 0.9% 100 ML IV SCH (09:03)
[2022-07-26] MEDS: LACTATED RINGERS 1,000 ML IV SCH ×3 (09:06→21:10)
[2022-07-26] MEDS: oxyCODONE IR 5 MG TABLET PO PRN ×2 (13:51→23:54)
[2022-07-27] MEDS: HYDROmorphone 1 MG/1 ML SYRINGE IV PRN ×3 (05:19→20:38)
[2022-07-27] MEDS: LACTATED RINGERS 1,000 ML IV SCH (05:26)
[2022-07-27] MEDS: TAMSULOSIN 0.4 MG CAPSULE PO SCH ×2 (08:34→21:39)
[2022-07-27] MEDS: BACILLUS COAGULANS CAPLET PO SCH (08:34)
[2022-07-27] MEDS: DICYCLOMINE 10 MG CAPSULE PO SCH ×4 (08:34→21:39)
[2022-07-27] MEDS: MORPHINE ER 30 MG TABLET PO SCH ×2 (08:34→21:39)
[2022-07-27] MEDS: PANTOPRAZOLE 40 MG TABLET PO SCH (08:35)
[2022-07-27] MEDS: GABAPENTIN 300 MG CAPSULE PO SCH ×3 (08:35→21:38)
[2022-07-27] MEDS: ERTAPENEM 1,000 MG in SODIUM CHLORIDE 0.9% 100 ML IV SCH (08:49)
[2022-07-27] MEDS: oxyCODONE IR 5 MG TABLET PO PRN ×2 (09:59→17:37)
[2022-07-27] MEDS: LOPERAMIDE 2 MG CAPSULE PO PRN (23:55)
[2022-07-28] MEDS: HYDROmorphone 1 MG/1 ML SYRINGE IV PRN ×3 (02:51→23:32)
[2022-07-28] MEDS: LOPERAMIDE 2 MG CAPSULE PO PRN (02:51)
[2022-07-28] MEDS: PANTOPRAZOLE 40 MG TABLET PO SCH (08:25)
[2022-07-28] MEDS: TAMSULOSIN 0.4 MG CAPSULE PO SCH ×2 (08:25→20:58)
[2022-07-28] MEDS: BACILLUS COAGULANS CAPLET PO SCH (08:25)
[2022-07-28] MEDS: GABAPENTIN 300 MG CAPSULE PO SCH ×3 (08:25→20:58)
[2022-07-28] MEDS: DICYCLOMINE 10 MG CAPSULE PO SCH ×4 (08:25→20:58)
[2022-07-28] MEDS: MORPHINE ER 30 MG TABLET PO SCH ×2 (08:26→20:58)
[2022-07-28] MEDS: ERTAPENEM 1,000 MG in SODIUM CHLORIDE 0.9% 100 ML IV SCH (08:26)
[2022-07-28] MEDS: oxyCODONE IR 5 MG TABLET PO PRN (14:38)
[2022-07-29] MEDS: HYDROmorphone 1 MG/1 ML SYRINGE IV PRN (06:29)
[2022-07-29] MEDS: MORPHINE ER 30 MG TABLET PO SCH ×2 (09:04→20:57)
[2022-07-29] MEDS: PANTOPRAZOLE 40 MG TABLET PO SCH (09:04)
[2022-07-29] MEDS: BACILLUS COAGULANS CAPLET PO SCH (09:04)
[2022-07-29] MEDS: GABAPENTIN 300 MG CAPSULE PO SCH ×3 (09:04→20:57)
[2022-07-29] MEDS: DICYCLOMINE 10 MG CAPSULE PO SCH ×4 (09:04→20:57)
[2022-07-29] MEDS: ERTAPENEM 1,000 MG in SODIUM CHLORIDE 0.9% 100 ML IV SCH (09:04)
[2022-07-29] MEDS: TAMSULOSIN 0.4 MG CAPSULE PO SCH ×2 (09:05→20:57)
[2022-07-29] MEDS: oxyCODONE IR 5 MG TABLET PO PRN ×3 (10:26→19:54)
[2022-07-29] MEDS: LOPERAMIDE 2 MG CAPSULE PO PRN (21:01)
[2022-07-30] MEDS: oxyCODONE IR 5 MG TABLET PO PRN ×3 (00:01→10:24)
[2022-07-30] MEDS: LOPERAMIDE 2 MG CAPSULE PO PRN ×4 (00:01→10:24)
[2022-07-30] MEDS: BACILLUS COAGULANS CAPLET PO SCH (08:42)
[2022-07-30] MEDS: PANTOPRAZOLE 40 MG TABLET PO SCH (08:42)
[2022-07-30] MEDS: TAMSULOSIN 0.4 MG CAPSULE PO SCH (08:42)
[2022-07-30] MEDS: MORPHINE ER 30 MG TABLET PO SCH (08:42)
[2022-07-30] MEDS: DICYCLOMINE 10 MG CAPSULE PO SCH (08:42)
[2022-07-30] MEDS: GABAPENTIN 300 MG CAPSULE PO SCH (08:43)
[2022-07-30 11:21] VITALS: BP 125/67
[2022-07-30] MEDS: ERTAPENEM 1,000 MG in SODIUM CHLORIDE 0.9% 100 ML IV SCH (11:40)
== END 2022-07-30 14:00 | disposition home health service (06) | DRG 394 ==
LOC: N.EDINP 16:52 → N.ED 16:52 → N.3E 23:22
PROVIDERS: ADMIT Surgery; ATTEND Surgery

== ENCOUNTER 2022-08-12 07:43 | Inpatient (IN) ==
[2022-08-12] MEDS ORDERED: SODIUM CHLORIDE 0.9% 1,000 ML IV STA ×2 (08:18→11:06)
[2022-08-12] MEDS ORDERED: AMPICILLIN/SULBACTAM 3,000 MG in SODIUM CHLORIDE 0.9% 100 ML IV STA (08:18)
[2022-08-12 08:32] LABS: Basophils % 0.4 % (0.0-0.8); Eosinophils % 0.2 % (0.00-10.9); Hematocrit 27.1 VOL% (42.0-52.0); Hemoglobin 8.4 GM/DL (14.0-18.0); Immature Granulocytes % 4.9 %; Lymphocytes # 0.3 10*3/uL (1.4-4.0); Lymphocytes % 3.2 % (21.2-54.2); Mean Corpuscular Volume 84.2 FL (87-102); Monocytes # 0.5 10*3/uL (0.11-0.8); Monocytes % 6.5 % (1.7-12.7); Neutrophils % 84.8 % (38.7-73.9); Platelet Count 292 T/CUMM (130-400); Red Blood Count 3.22 MC/CUMM (3.8-5.5); White Blood Count 8.11 T/CUMM (4-12)
[2022-08-12 08:55] LABS: Alanine Aminotransferase 74 U/L (16-61); Albumin 2.3 G/DL (3.4-5.0); Alkaline Phosphatase 103 U/L (45-117); Aspartate Amino Transferase 29 U/L (0-37); Bilirubin,Total < 0.39 MG/DL (0.20-1.00); Blood Urea Nitrogen 18 MG/DL (7-18); Calcium 8.8 MG/DL (8.5-10.1); Carbon Dioxide 19 MMOL/L (21-32); Chloride 104 MMOL/L (98-107); Glucose 109 MG/DL (74-106); Osmolality,Calculated 268.4 MOS/KG (273-304); Potassium 3.9 MMOL/L (3.5-5.1); Sodium 133 MMOL/L (136-145); Total Protein 7.1 G/DL (6.4-8.2)
[2022-08-12 09:04] LABS: Band Neutrophils 2 % (0-10); Eosinophils 1 % (0-10); Hypochromia 1+; Lymphocytes 3 % (20-55); Microcytosis 1+; Platelet Estimate Adequate; Total Cells Counted 100
[2022-08-12] MEDS ORDERED: HYDROmorphone 1 MG/1 ML SYRINGE ONE (09:07)
[2022-08-12] MEDS ORDERED: ONDANSETRON 4 MG/2 ML VIAL ONE (09:07)
[2022-08-12 09:08] LABS: INR 1.1; PT Patient Result 11.9 SECS (10.1-12.1)
[2022-08-12] MEDS ORDERED: HYDROmorphone 1 MG/1 ML SYRINGE IV STA (09:30)
[2022-08-12] MEDS ORDERED: ONDANSETRON 4 MG/2 ML VIAL IV STA (09:30)
[2022-08-12 09:44] LABS: Sedimentation Rate-Westergren 113 MM/HR (0-20)
[2022-08-12 10:20] LABS: Mucus,Urine Occasional /LPF (Occasional); RBC,Urine 1 /HPF (0-4); Squamous Epithelial Cell,Urine Occasional /HPF (0-10)
[2022-08-12 10:21] LABS: Urine Appearance Clear (Clear); Urine Color Yellow (Yellow); Urine Specific Gravity 1.015 (1.001-1.035)
[2022-08-12 10:22] LABS: Bilirubin,Urine Negative (Negative); Blood, Urine Negative (Negative); Glucose,Urine (UA) Negative (Negative); Ketones,Urine Negative (Negative); Nitrite,Urine Negative (Negative); Protein,Urine Negative (Negative); Urine Urobilinogen 0.2 eU/dL (<2.0)
[2022-08-12] MEDS ORDERED: ONDANSETRON 4 MG/2 ML VIAL IV PRN (10:51)
[2022-08-12] MEDS ORDERED: LACTATED RINGERS 1,000 ML IV ONE (10:56)
[2022-08-12] MEDS: HYDROmorphone 1 MG/1 ML SYRINGE IV PRN ×5 (12:53→22:23)
[2022-08-12] MEDS: LACTATED RINGERS 1,000 ML IV SCH (13:45)
[2022-08-12] MEDS: ACETAMINOPHEN 325 MG TABLET PO PRN (22:27)
[2022-08-13] MEDS: HYDROmorphone 1 MG/1 ML SYRINGE IV PRN ×8 (00:41→22:00)
[2022-08-13] MEDS: LACTATED RINGERS 1,000 ML IV SCH ×6 (00:42→20:57)
[2022-08-13 05:13] LABS: Basophils % 0.4 % (0.0-0.8); Eosinophils # 0.1 10*3/uL (0.0-0.87); Eosinophils % 0.9 % (0.00-10.9); Hematocrit 24.5 VOL% (42.0-52.0); Hemoglobin 7.4 GM/DL (14.0-18.0); Immature Granulocytes % 1.9 %; Immature Granulocytes Absolute 0.15 #; Lymphocytes # 0.6 10*3/uL (1.4-4.0); Lymphocytes % 7.6 % (21.2-54.2); Mean Corpuscular HGB Conc 30.2 GM/DL (32-36); Mean Corpuscular Volume 86.6 FL (87-102); Mean Platelet Volume 8.9 FL (9.6-12.0); Monocytes # 0.8 10*3/uL (0.11-0.8); Monocytes % 10.3 % (1.7-12.7); Neutrophils % 78.9 % (38.7-73.9); Platelet Count 242 T/CUMM (130-400); Red Blood Count 2.83 MC/CUMM (3.8-5.5); Red Cell Distribution Width 17.9 % (9.3-17.3); White Blood Count 8.02 T/CUMM (4-12)
[2022-08-13 05:30] LABS: Calcium 8.8 MG/DL (8.5-10.1); Potassium 3.9 MMOL/L (3.5-5.1)
[2022-08-13 05:40] LABS: Band Neutrophils 7 % (0-10); Eosinophils 1 % (0-10); Hypochromia Slight; Lymphocytes 6 % (20-55); Metamyelocytes 1 %; Microcytosis 1+; Myelocytes 1 %; Total Cells Counted 100
[2022-08-13 05:41] LABS: Ovalocytes Slight; Polychromasia Slight
[2022-08-13] MEDS ORDERED: LIDOCAINE 2% 5 ML VIAL ONE (06:22)
[2022-08-13] MEDS ORDERED: ONDANSETRON 4 MG/2 ML VIAL ONE (06:22)
[2022-08-13] MEDS ORDERED: SEVOFLURANE 1 UNIT/15 MINUTE INH ONE ×4 (06:22→09:20)
[2022-08-13] MEDS ORDERED: MIDAZOLAM 2 MG/2 ML VIAL ONE (06:22)
[2022-08-13] MEDS ORDERED: DEXAMETHASONE 4 MG/1 ML VIAL ONE ×2 (06:22→06:50)
[2022-08-13] MEDS ORDERED: fentaNYL 100 MCG/2 ML VIAL ONE ×4 (06:22→09:12)
[2022-08-13] MEDS ORDERED: propofoL 200 MG/20 ML VIAL IV ONE (06:22)
[2022-08-13] MEDS ORDERED: ROCURONIUM 50 MG/5 ML VIAL IV ONE (06:22)
[2022-08-13] MEDS ORDERED: SODIUM CHLORIDE 0.9% 1,000 ML IV ONE (06:34)
[2022-08-13] MEDS ORDERED: ROPIVACAINE 0.5% 30 ML VIAL ONE (06:50)
[2022-08-13] MEDS ORDERED: LIDOCAINE 1% 5 ML VIAL ONE (06:50)
[2022-08-13] MEDS ORDERED: SODIUM CHLORIDE 0.9% 1,000 ML IV PRN (07:33)
[2022-08-13] MEDS ORDERED: GLYCOPYRROLATE 0.4 MG/2 ML VIAL ONE (08:50)
[2022-08-13] MEDS ORDERED: NEOSTIGMINE 10 MG/10 ML VIAL ONE (08:51)
[2022-08-13] MEDS ORDERED: SUGAMMADEX 200 MG/2 ML VIAL IV ONE (09:22)
[2022-08-13] MEDS: PANTOPRAZOLE 40 MG VIAL IV SCH (11:16)
[2022-08-13] MEDS: ERTAPENEM 1,000 MG in SODIUM CHLORIDE 0.9% 100 ML IV SCH (11:18)
[2022-08-13] MEDS: ACETAMINOPHEN 325 MG TABLET PO PRN (11:31)
[2022-08-13] MEDS: VANCOMYCIN INJ 1,000 MG in SODIUM CHLORIDE 0.9% 250 ML IV SCH ×2 (12:17→23:32)
[2022-08-13] MEDS: TAMSULOSIN 0.4 MG CAPSULE PO SCH (20:27)
[2022-08-14] MEDS: HYDROmorphone 1 MG/1 ML SYRINGE IV PRN ×5 (02:38→23:54)
[2022-08-14] MEDS: LACTATED RINGERS 1,000 ML IV SCH ×3 (02:38→14:27)
[2022-08-14 04:48] LABS: Basophils % 0.1 % (0.0-0.8); Hematocrit 22.8 VOL% (42.0-52.0); Hemoglobin 6.9 GM/DL (14.0-18.0); Immature Granulocytes % 1.2 %; Immature Granulocytes Absolute 0.13 #; Lymphocytes # 0.6 10*3/uL (1.4-4.0); Lymphocytes % 5.8 % (21.2-54.2); Mean Corpuscular HGB Conc 30.3 GM/DL (32-36); Mean Corpuscular Volume 85.1 FL (87-102); Monocytes # 1.1 10*3/uL (0.11-0.8); Monocytes % 10.8 % (1.7-12.7); Neutrophils % 82.1 % (38.7-73.9); Platelet Count 256 T/CUMM (130-400); Red Blood Count 2.68 MC/CUMM (3.8-5.5); Red Cell Distribution Width 17.2 % (9.3-17.3); White Blood Count 10.43 T/CUMM (4-12)
[2022-08-14 05:23] LABS: Calcium 8.5 MG/DL (8.5-10.1); Osmolality,Calculated 285.3 MOS/KG (273-304); Potassium 4.1 MMOL/L (3.5-5.1)
[2022-08-14] MEDS: oxyCODONE/ACETAMINOPHEN 5-325 MG TABLET PO PRN ×2 (05:39→18:42)
[2022-08-14] MEDS: LORazepam 2 MG/1 ML VIAL IV PRN ×2 (08:01→14:05)
[2022-08-14] MEDS: PANTOPRAZOLE 40 MG VIAL IV SCH (08:23)
[2022-08-14] MEDS ORDERED: MORPHINE ER 30 MG TABLET PO SCH (09:00)
[2022-08-14] MEDS: TAMSULOSIN 0.4 MG CAPSULE PO SCH ×2 (10:40→20:29)
[2022-08-14] MEDS: ERTAPENEM 1,000 MG in SODIUM CHLORIDE 0.9% 100 ML IV SCH (10:41)
[2022-08-14] MEDS: MORPHINE ER 30 MG TABLET PO PRN (11:09)
[2022-08-14] MEDS: VANCOMYCIN INJ 1,000 MG in SODIUM CHLORIDE 0.9% 250 ML IV SCH ×2 (12:44→23:46)
[2022-08-15] MEDS: LACTATED RINGERS 1,000 ML IV SCH ×5 (01:11→21:22)
[2022-08-15] MEDS: MORPHINE ER 30 MG TABLET PO PRN (02:31)
[2022-08-15] MEDS: LORazepam 2 MG/1 ML VIAL IV PRN (02:44)
[2022-08-15 05:46] LABS: Eosinophils % 0.2 % (0.00-10.9); Hematocrit 23.7 VOL% (42.0-52.0); Hemoglobin 7.4 GM/DL (14.0-18.0); Immature Granulocytes % 2.7 %; Lymphocytes # 0.6 10*3/uL (1.4-4.0); Lymphocytes % 2.8 % (21.2-54.2); Mean Corpuscular HGB Conc 31.2 GM/DL (32-36); Mean Corpuscular Volume 82.9 FL (87-102); Mean Platelet Volume 8.5 FL (9.6-12.0); Monocytes # 1.5 10*3/uL (0.11-0.8); Monocytes % 6.8 % (1.7-12.7); Neutrophils % 87.5 % (38.7-73.9); Platelet Count 285 T/CUMM (130-400); Red Blood Count 2.86 MC/CUMM (3.8-5.5); Red Cell Distribution Width 17.9 % (9.3-17.3); White Blood Count 22.13 T/CUMM (4-12)
[2022-08-15 06:04] LABS: Calcium 8.3 MG/DL (8.5-10.1); Osmolality,Calculated 264.2 MOS/KG (273-304); Potassium 3.6 MMOL/L (3.5-5.1)
[2022-08-15 06:20] LABS: Anisocytosis 1+; Band Neutrophils 19 % (0-10); Lymphocytes 5 % (20-55); Platelet Estimate Normal; Total Cells Counted 100
[2022-08-15 06:21] LABS: Spherocytes Few
[2022-08-15] MEDS: TAMSULOSIN 0.4 MG CAPSULE PO SCH ×3 (10:54→23:55)
[2022-08-15] MEDS: oxyCODONE/ACETAMINOPHEN 5-325 MG TABLET PO PRN (10:54)
[2022-08-15] MEDS: ERTAPENEM 1,000 MG in SODIUM CHLORIDE 0.9% 100 ML IV SCH (11:05)
[2022-08-15] MEDS: PANTOPRAZOLE 40 MG VIAL IV SCH (11:22)
[2022-08-15] MEDS: VANCOMYCIN INJ 1,000 MG in SODIUM CHLORIDE 0.9% 250 ML IV SCH (11:23)
[2022-08-15] MEDS: HYDROmorphone 1 MG/1 ML SYRINGE IV PRN ×3 (12:38→20:43)
[2022-08-15 18:57] LABS: Basophils % 0.1 % (0.0-0.8); Eosinophils # 0.1 10*3/uL (0.0-0.87); Eosinophils % 0.3 % (0.00-10.9); Hematocrit 22.5 VOL% (42.0-52.0); Hemoglobin 7.3 GM/DL (14.0-18.0); Immature Granulocytes Absolute 0.52 #; Lymphocytes # 0.6 10*3/uL (1.4-4.0); Lymphocytes % 2.1 % (21.2-54.2); Mean Corpuscular HGB Conc 32.4 GM/DL (32-36); Mean Corpuscular Volume 81.8 FL (87-102); Mean Platelet Volume 8.2 FL (9.6-12.0); Monocytes # 1.8 10*3/uL (0.11-0.8); Monocytes % 6.9 % (1.7-12.7); Neutrophils % 88.6 % (38.7-73.9); Platelet Count 284 T/CUMM (130-400); Red Blood Count 2.75 MC/CUMM (3.8-5.5); Red Cell Distribution Width 18.3 % (9.3-17.3); White Blood Count 26.43 T/CUMM (4-12)
[2022-08-15] MEDS ORDERED: SODIUM CHLORIDE 0.9% 1,000 ML IV PRN (19:06)
[2022-08-15] MEDS ORDERED: VANCOMYCIN INJ 1,000 MG in SODIUM CHLORIDE 0.9% 250 ML IV SCH (20:00)
[2022-08-15 20:07] LABS: Eosinophils 2 % (0-10); Lymphocytes 12 % (20-55); Total Cells Counted 100
[2022-08-15 20:08] LABS: Platelet Estimate Adequate
[2022-08-15 20:09] LABS: Hypochromia Slight; Microcytosis Slight; Ovalocytes Slight; Stomatocytes Slight
[2022-08-15] MEDS ORDERED: LACTATED RINGERS 1,000 ML IV ONE (20:15)
[2022-08-15] MEDS ORDERED: LIDOCAINE 1%/EPI INJ 20 ML VIAL ONE (21:13)
[2022-08-15] MEDS ORDERED: BUPIVACAINE MPF 0.25% 10 ML VIAL ONE (21:13)
[2022-08-15] MEDS ORDERED: LIDOCAINE 2% 5 ML VIAL ONE (21:21)
[2022-08-15] MEDS ORDERED: ROCURONIUM 50 MG/5 ML VIAL IV ONE (21:21)
[2022-08-15] MEDS ORDERED: fentaNYL 100 MCG/2 ML VIAL ONE ×2 (21:21→22:31)
[2022-08-15] MEDS ORDERED: MIDAZOLAM 2 MG/2 ML VIAL ONE (21:21)
[2022-08-15] MEDS ORDERED: propofoL 200 MG/20 ML VIAL IV ONE (21:21)
[2022-08-15] MEDS ORDERED: SEVOFLURANE 1 UNIT/15 MINUTE INH ONE ×3 (21:21→22:36)
[2022-08-15] MEDS ORDERED: VANCOMYCIN 500 MG VIAL ONE ×3 (22:12→22:43)
[2022-08-15] MEDS ORDERED: SUGAMMADEX 200 MG/2 ML VIAL IV ONE (22:43)
[2022-08-15] MEDS ORDERED: metroNIDAZOLE INJ 500 MG/100 ML PREMIX IV ONE (22:44)
[2022-08-15] MEDS ORDERED: MEPERIDINE 25 MG/1 ML VIAL ONE (23:10)
[2022-08-15] MEDS: metroNIDAZOLE INJ 500 MG/100 ML PREMIX IV SCH (23:34)
[2022-08-15] MEDS: VANCOMYCIN 50 MG/ML 60 ML/BOTTLE PO SCH (23:50)
[2022-08-15] MEDS: VANCOMYCIN 125 MG CAPSULE PO SCH (23:55)
[2022-08-16] MEDS: HYDROmorphone 1 MG/1 ML SYRINGE IV PRN ×3 (03:55→11:04)
[2022-08-16] MEDS: VANCOMYCIN 125 MG CAPSULE PO SCH ×3 (05:18→20:50)
[2022-08-16] MEDS: metroNIDAZOLE INJ 500 MG/100 ML PREMIX IV SCH ×3 (05:18→21:14)
[2022-08-16 05:49] LABS: Basophils % 0.2 % (0.0-0.8); Eosinophils # 0.1 10*3/uL (0.0-0.87); Eosinophils % 0.2 % (0.00-10.9); Hematocrit 24.9 VOL% (42.0-52.0); Hemoglobin 7.8 GM/DL (14.0-18.0); Immature Granulocytes % 3.1 %; Immature Granulocytes Absolute 0.82 #; Lymphocytes # 0.5 10*3/uL (1.4-4.0); Lymphocytes % 1.8 % (21.2-54.2); Mean Corpuscular HGB Conc 31.3 GM/DL (32-36); Mean Corpuscular Volume 81.9 FL (87-102); Mean Platelet Volume 8.2 FL (9.6-12.0); Monocytes # 1.8 10*3/uL (0.11-0.8); Monocytes % 6.7 % (1.7-12.7); Platelet Count 261 T/CUMM (130-400); Red Blood Count 3.04 MC/CUMM (3.8-5.5); Red Cell Distribution Width 18.5 % (9.3-17.3); White Blood Count 26.61 T/CUMM (4-12)
[2022-08-16] MEDS: LACTATED RINGERS 1,000 ML IV SCH ×2 (05:59→16:20)
[2022-08-16 06:05] LABS: Calcium 8.4 MG/DL (8.5-10.1); Potassium 3.3 MMOL/L (3.5-5.1)
[2022-08-16 06:09] LABS: Band Neutrophils 2 % (0-10); Hypochromia Slight; Microcytosis Slight; Platelet Estimate Adequate; Total Cells Counted 100
[2022-08-16] MEDS: PANTOPRAZOLE 40 MG VIAL IV SCH (08:55)
[2022-08-16] MEDS: TAMSULOSIN 0.4 MG CAPSULE PO SCH ×2 (08:56→20:50)
[2022-08-16] MEDS: ERTAPENEM 1,000 MG in SODIUM CHLORIDE 0.9% 100 ML IV SCH (08:57)
[2022-08-16] MEDS: VANCOMYCIN 50 MG/ML 60 ML/BOTTLE PO SCH ×2 (09:09→14:15)
[2022-08-16] MEDS ORDERED: NALOXONE 0.4 MG/ML VIAL IV PRN (12:16)
[2022-08-16] MEDS: oxyCODONE/ACETAMINOPHEN 5-325 MG TABLET PO PRN (14:30)
[2022-08-16] MEDS: HYDROmorphone PCA 30 MG/30 ML SYRINGE IV SCH (15:04)
[2022-08-16] MEDS ORDERED: VANCOMYCIN RECTAL SCH ×2 (18:00→18:30)
[2022-08-16] MEDS ORDERED: SODIUM CHLORIDE 0.9% RECTAL SCH (18:00)
[2022-08-16] MEDS ORDERED: VANCOMYCIN 50 MG/ML 60 ML/BOTTLE PO SCH (18:00)
[2022-08-16] MEDS ORDERED: [UNRECOGNIZED DRUG - OTHER] RECTAL SCH (18:30)
[2022-08-16] MEDS: [UNRECOGNIZED DRUG - OTHER] RECTAL SCH (19:42)
[2022-08-16] MEDS: VANCOMYCIN RECTAL SCH (19:42)
[2022-08-16] MEDS: POTASSIUM BICARB EFFERVESCENT 20 MEQ TAB.EFF PO SCH ×2 (20:10→20:50)
[2022-08-16] MEDS: ENOXAPARIN 40 MG/0.4 ML SYRINGE SUBCUT SCH (20:50)
[2022-08-17] MEDS: [UNRECOGNIZED DRUG - OTHER] RECTAL SCH ×4 (01:25→19:50)
[2022-08-17] MEDS: VANCOMYCIN RECTAL SCH ×4 (01:25→19:50)
[2022-08-17] MEDS: LACTATED RINGERS 1,000 ML IV SCH ×4 (02:21→21:13)
[2022-08-17] MEDS: MORPHINE ER 30 MG TABLET PO PRN ×2 (02:29→21:12)
[2022-08-17] MEDS: VANCOMYCIN 125 MG CAPSULE PO SCH ×4 (02:30→21:12)
[2022-08-17 05:34] LABS: Basophils % 0.1 % (0.0-0.8); Eosinophils # 0.2 10*3/uL (0.0-0.87); Eosinophils % 0.9 % (0.00-10.9); Hematocrit 24.2 VOL% (42.0-52.0); Hemoglobin 7.5 GM/DL (14.0-18.0); Immature Granulocytes % 2.8 %; Immature Granulocytes Absolute 0.51 #; Lymphocytes # 0.6 10*3/uL (1.4-4.0); Lymphocytes % 3.3 % (21.2-54.2); Mean Platelet Volume 8.9 FL (9.6-12.0); Monocytes # 1.1 10*3/uL (0.11-0.8); Monocytes % 6.2 % (1.7-12.7); Neutrophils % 86.7 % (38.7-73.9); Platelet Count 306 T/CUMM (130-400); Red Blood Count 2.95 MC/CUMM (3.8-5.5); Red Cell Distribution Width 18.6 % (9.3-17.3)
[2022-08-17 06:02] LABS: Hypochromia 1+; Microcytosis 1+; Platelet Estimate Adequate; Total Cells Counted 100
[2022-08-17 06:10] LABS: Alanine Aminotransferase 24 U/L (16-61); Albumin 1.5 G/DL (3.4-5.0); Alkaline Phosphatase 77 U/L (45-117); Aspartate Amino Transferase 12 U/L (0-37); Bilirubin,Total < 0.39 MG/DL (0.20-1.00); Blood Urea Nitrogen 13 MG/DL (7-18); Calcium 7.9 MG/DL (8.5-10.1); Carbon Dioxide 21 MMOL/L (21-32); Chloride 110 MMOL/L (98-107); Glucose 114 MG/DL (74-106); Osmolality,Calculated 275.7 MOS/KG (273-304); Potassium 3.4 MMOL/L (3.5-5.1); Sodium 138 MMOL/L (136-145); Total Protein 5.3 G/DL (6.4-8.2)
[2022-08-17] MEDS: metroNIDAZOLE INJ 500 MG/100 ML PREMIX IV SCH ×3 (06:20→21:13)
[2022-08-17] MEDS: oxyCODONE/ACETAMINOPHEN 5-325 MG TABLET PO PRN (09:30)
[2022-08-17] MEDS: TAMSULOSIN 0.4 MG CAPSULE PO SCH ×2 (09:35→21:11)
[2022-08-17] MEDS: ERTAPENEM 1,000 MG in SODIUM CHLORIDE 0.9% 100 ML IV SCH (09:35)
[2022-08-17] MEDS: PANTOPRAZOLE 40 MG VIAL IV SCH (09:36)
[2022-08-17] MEDS: POTASSIUM PHOS/SOD PHOS 250 MG TABLET PO SCH ×2 (12:35→17:46)
[2022-08-17] MEDS: HYDROmorphone PCA 30 MG/30 ML SYRINGE IV SCH (17:46)
[2022-08-17] MEDS: ENOXAPARIN 40 MG/0.4 ML SYRINGE SUBCUT SCH (21:13)
[2022-08-17] MEDS ORDERED: POTASSIUM PHOS/SOD PHOS 250 MG TABLET PO SCH (22:00)
[2022-08-18] MEDS: POTASSIUM PHOS/SOD PHOS 250 MG TABLET PO SCH ×2 (00:05→08:53)
[2022-08-18] MEDS: [UNRECOGNIZED DRUG - OTHER] RECTAL SCH ×4 (01:26→19:10)
[2022-08-18] MEDS: VANCOMYCIN RECTAL SCH ×4 (01:26→19:10)
[2022-08-18] MEDS: VANCOMYCIN 125 MG CAPSULE PO SCH ×4 (03:25→21:36)
[2022-08-18 06:01] LABS: Basophils % 0.2 % (0.0-0.8); Eosinophils # 0.2 10*3/uL (0.0-0.87); Eosinophils % 1.9 % (0.00-10.9); Hematocrit 25.3 VOL% (42.0-52.0); Hemoglobin 7.8 GM/DL (14.0-18.0); Immature Granulocytes % 1.5 %; Immature Granulocytes Absolute 0.19 #; Lymphocytes # 0.6 10*3/uL (1.4-4.0); Lymphocytes % 4.9 % (21.2-54.2); Mean Corpuscular HGB Conc 30.8 GM/DL (32-36); Mean Corpuscular Volume 81.6 FL (87-102); Mean Platelet Volume 8.7 FL (9.6-12.0); Monocytes % 8.1 % (1.7-12.7); Neutrophils % 83.4 % (38.7-73.9); Platelet Count 375 T/CUMM (130-400); Red Cell Distribution Width 18.3 % (9.3-17.3); White Blood Count 12.26 T/CUMM (4-12)
[2022-08-18] MEDS: metroNIDAZOLE INJ 500 MG/100 ML PREMIX IV SCH ×3 (06:01→21:34)
[2022-08-18] MEDS: LACTATED RINGERS 1,000 ML IV SCH ×2 (06:07→14:18)
[2022-08-18 06:22] LABS: Calcium 7.8 MG/DL (8.5-10.1); Osmolality,Calculated 277.4 MOS/KG (273-304); Potassium 3.4 MMOL/L (3.5-5.1)
[2022-08-18 06:27] LABS: Band Neutrophils 3 % (0-10); Eosinophils 5 % (0-10); Lymphocytes 4 % (20-55); Microcytosis 1+; Total Cells Counted 100
[2022-08-18 06:28] LABS: Hypochromia Slight; Ovalocytes Slight; Platelet Estimate Normal
[2022-08-18] MEDS: PANTOPRAZOLE 40 MG VIAL IV SCH (08:52)
[2022-08-18] MEDS: oxyCODONE/ACETAMINOPHEN 5-325 MG TABLET PO PRN ×3 (08:53→19:14)
[2022-08-18] MEDS: BACILLUS COAGULANS CAPLET PO SCH (08:53)
[2022-08-18] MEDS: TAMSULOSIN 0.4 MG CAPSULE PO SCH ×2 (08:53→21:36)
[2022-08-18] MEDS: HYDROmorphone PCA 30 MG/30 ML SYRINGE IV SCH (14:18)
[2022-08-18] MEDS: MORPHINE ER 30 MG TABLET PO PRN (21:36)
[2022-08-18] MEDS: ENOXAPARIN 40 MG/0.4 ML SYRINGE SUBCUT SCH (21:36)
[2022-08-19] MEDS: oxyCODONE/ACETAMINOPHEN 5-325 MG TABLET PO PRN ×4 (01:12→18:24)
[2022-08-19] MEDS: VANCOMYCIN RECTAL SCH ×4 (01:44→18:30)
[2022-08-19] MEDS: [UNRECOGNIZED DRUG - OTHER] RECTAL SCH ×4 (01:44→18:30)
[2022-08-19] MEDS: LACTATED RINGERS 1,000 ML IV SCH ×2 (04:11→07:49)
[2022-08-19] MEDS: VANCOMYCIN 125 MG CAPSULE PO SCH ×4 (04:11→21:03)
[2022-08-19] MEDS: metroNIDAZOLE INJ 500 MG/100 ML PREMIX IV SCH ×3 (05:31→21:45)
[2022-08-19] MEDS: BACILLUS COAGULANS CAPLET PO SCH (09:05)
[2022-08-19] MEDS: POTASSIUM PHOS/SOD PHOS 250 MG TABLET PO SCH (09:05)
[2022-08-19] MEDS: TAMSULOSIN 0.4 MG CAPSULE PO SCH ×2 (09:05→21:03)
[2022-08-19] MEDS: PANTOPRAZOLE 40 MG VIAL IV SCH (09:08)
[2022-08-19] MEDS: HYDROmorphone PCA 30 MG/30 ML SYRINGE IV SCH (13:32)
[2022-08-19] MEDS: ENOXAPARIN 40 MG/0.4 ML SYRINGE SUBCUT SCH (21:03)
[2022-08-20] MEDS: oxyCODONE/ACETAMINOPHEN 5-325 MG TABLET PO PRN ×4 (00:39→22:34)
[2022-08-20] MEDS: [UNRECOGNIZED DRUG - OTHER] RECTAL SCH ×4 (01:07→19:31)
[2022-08-20] MEDS: VANCOMYCIN RECTAL SCH ×4 (01:07→19:31)
[2022-08-20] MEDS: VANCOMYCIN 125 MG CAPSULE PO SCH ×4 (03:39→21:29)
[2022-08-20 04:46] LABS: Basophils % 0.4 % (0.0-0.8); Eosinophils # 0.2 10*3/uL (0.0-0.87); Eosinophils % 1.9 % (0.00-10.9); Hematocrit 28.3 VOL% (42.0-52.0); Hemoglobin 8.8 GM/DL (14.0-18.0); Immature Granulocytes % 4.7 %; Immature Granulocytes Absolute 0.39 #; Lymphocytes # 0.6 10*3/uL (1.4-4.0); Lymphocytes % 7.4 % (21.2-54.2); Mean Corpuscular HGB Conc 31.1 GM/DL (32-36); Mean Corpuscular Volume 81.8 FL (87-102); Mean Platelet Volume 8.6 FL (9.6-12.0); Monocytes # 0.9 10*3/uL (0.11-0.8); Monocytes % 11.1 % (1.7-12.7); Neutrophils % 74.5 % (38.7-73.9); Platelet Count 466 T/CUMM (130-400); Red Blood Count 3.46 MC/CUMM (3.8-5.5); Red Cell Distribution Width 18.2 % (9.3-17.3); White Blood Count 8.27 T/CUMM (4-12)
[2022-08-20 05:05] LABS: Calcium 8.1 MG/DL (8.5-10.1); Osmolality,Calculated 276.4 MOS/KG (273-304); Potassium 3.7 MMOL/L (3.5-5.1)
[2022-08-20] MEDS: MORPHINE ER 30 MG TABLET PO PRN (05:20)
[2022-08-20] MEDS: metroNIDAZOLE INJ 500 MG/100 ML PREMIX IV SCH ×3 (05:29→21:31)
[2022-08-20] MEDS: HYDROmorphone PCA 30 MG/30 ML SYRINGE IV SCH (05:59)
[2022-08-20] MEDS: BACILLUS COAGULANS CAPLET PO SCH (10:32)
[2022-08-20] MEDS: PANTOPRAZOLE 40 MG VIAL IV SCH (10:32)
[2022-08-20] MEDS: TAMSULOSIN 0.4 MG CAPSULE PO SCH ×2 (10:32→21:29)
[2022-08-20] MEDS: MORPHINE ER 30 MG TABLET PO SCH (12:32)
[2022-08-20] MEDS: POTASSIUM PHOS/SOD PHOS 250 MG TABLET PO SCH (12:32)
[2022-08-20] MEDS: ENOXAPARIN 40 MG/0.4 ML SYRINGE SUBCUT SCH (21:31)
[2022-08-21] MEDS: MORPHINE ER 30 MG TABLET PO SCH ×3 (00:26→23:10)
[2022-08-21] MEDS: VANCOMYCIN RECTAL SCH ×4 (00:38→18:39)
[2022-08-21] MEDS: [UNRECOGNIZED DRUG - OTHER] RECTAL SCH ×4 (00:38→18:39)
[2022-08-21] MEDS: VANCOMYCIN 125 MG CAPSULE PO SCH ×4 (04:08→20:26)
[2022-08-21] MEDS: metroNIDAZOLE INJ 500 MG/100 ML PREMIX IV SCH ×3 (06:30→21:45)
[2022-08-21] MEDS: oxyCODONE/ACETAMINOPHEN 5-325 MG TABLET PO PRN ×3 (06:31→18:40)
[2022-08-21] MEDS: POTASSIUM PHOS/SOD PHOS 250 MG TABLET PO SCH (09:33)
[2022-08-21] MEDS: TAMSULOSIN 0.4 MG CAPSULE PO SCH ×2 (09:33→20:26)
[2022-08-21] MEDS: BACILLUS COAGULANS CAPLET PO SCH (09:33)
[2022-08-21] MEDS: PANTOPRAZOLE 40 MG VIAL IV SCH (09:34)
[2022-08-21] MEDS: ENOXAPARIN 40 MG/0.4 ML SYRINGE SUBCUT SCH (20:26)
[2022-08-22] MEDS: oxyCODONE/ACETAMINOPHEN 5-325 MG TABLET PO PRN ×5 (01:15→23:24)
[2022-08-22] MEDS: VANCOMYCIN RECTAL SCH ×4 (01:30→18:38)
[2022-08-22] MEDS: [UNRECOGNIZED DRUG - OTHER] RECTAL SCH ×4 (01:30→18:38)
[2022-08-22] MEDS: VANCOMYCIN 125 MG CAPSULE PO SCH ×4 (03:55→21:59)
[2022-08-22] MEDS: metroNIDAZOLE INJ 500 MG/100 ML PREMIX IV SCH (05:07)
[2022-08-22] MEDS: BACILLUS COAGULANS CAPLET PO SCH (09:24)
[2022-08-22] MEDS: POTASSIUM PHOS/SOD PHOS 250 MG TABLET PO SCH (09:24)
[2022-08-22] MEDS: TAMSULOSIN 0.4 MG CAPSULE PO SCH ×2 (09:24→21:59)
[2022-08-22] MEDS: PANTOPRAZOLE 40 MG VIAL IV SCH (09:25)
[2022-08-22] MEDS: MORPHINE ER 30 MG TABLET PO SCH (11:51)
[2022-08-22] MEDS: HYDROmorphone PCA 30 MG/30 ML SYRINGE IV SCH ×3 (11:55→13:12)
[2022-08-22] MEDS: metroNIDAZOLE 500 MG TABLET PO SCH ×2 (13:59→21:59)
[2022-08-22] MEDS: ENOXAPARIN 40 MG/0.4 ML SYRINGE SUBCUT SCH (21:59)
[2022-08-23] MEDS: [UNRECOGNIZED DRUG - OTHER] RECTAL SCH ×4 (00:59→19:05)
[2022-08-23] MEDS: VANCOMYCIN RECTAL SCH ×4 (00:59→19:05)
[2022-08-23] MEDS: MORPHINE ER 30 MG TABLET PO SCH ×2 (00:59→11:56)
[2022-08-23] MEDS: VANCOMYCIN 125 MG CAPSULE PO SCH ×4 (03:34→21:17)
[2022-08-23] MEDS: metroNIDAZOLE 500 MG TABLET PO SCH ×3 (07:10→21:25)
[2022-08-23] MEDS: POTASSIUM PHOS/SOD PHOS 250 MG TABLET PO SCH (10:05)
[2022-08-23] MEDS: PANTOPRAZOLE 40 MG VIAL IV SCH (10:05)
[2022-08-23] MEDS: TAMSULOSIN 0.4 MG CAPSULE PO SCH ×2 (10:05→21:18)
[2022-08-23] MEDS: BACILLUS COAGULANS CAPLET PO SCH ×2 (10:05→21:17)
[2022-08-23] MEDS: HYDROmorphone PCA 30 MG/30 ML SYRINGE IV SCH (13:39)
[2022-08-23] MEDS: oxyCODONE/ACETAMINOPHEN 5-325 MG TABLET PO PRN ×2 (13:55→19:22)
[2022-08-23] MEDS: ENOXAPARIN 40 MG/0.4 ML SYRINGE SUBCUT SCH (21:17)
[2022-08-24] MEDS: oxyCODONE/ACETAMINOPHEN 5-325 MG TABLET PO PRN ×4 (00:06→19:08)
[2022-08-24] MEDS: MORPHINE ER 30 MG TABLET PO SCH ×2 (00:14→11:37)
[2022-08-24] MEDS: VANCOMYCIN RECTAL SCH ×4 (00:50→19:08)
[2022-08-24] MEDS: [UNRECOGNIZED DRUG - OTHER] RECTAL SCH ×4 (00:50→19:08)
[2022-08-24] MEDS: VANCOMYCIN 125 MG CAPSULE PO SCH ×4 (03:26→21:55)
[2022-08-24] MEDS: metroNIDAZOLE 500 MG TABLET PO SCH (05:26)
[2022-08-24] MEDS: POTASSIUM PHOS/SOD PHOS 250 MG TABLET PO SCH (08:54)
[2022-08-24] MEDS: TAMSULOSIN 0.4 MG CAPSULE PO SCH ×2 (08:54→21:55)
[2022-08-24] MEDS: BACILLUS COAGULANS CAPLET PO SCH ×2 (08:54→21:55)
[2022-08-24] MEDS: PANTOPRAZOLE 40 MG VIAL IV SCH (08:56)
[2022-08-24] MEDS: HYDROmorphone PCA 30 MG/30 ML SYRINGE IV SCH ×2 (12:30→21:48)
[2022-08-24] MEDS: ENOXAPARIN 40 MG/0.4 ML SYRINGE SUBCUT SCH (21:55)
[2022-08-25] MEDS: MORPHINE ER 30 MG TABLET PO SCH ×3 (00:07→23:39)
[2022-08-25] MEDS: oxyCODONE/ACETAMINOPHEN 5-325 MG TABLET PO PRN ×4 (01:00→18:30)
[2022-08-25] MEDS: [UNRECOGNIZED DRUG - OTHER] RECTAL SCH ×4 (01:48→18:30)
[2022-08-25] MEDS: VANCOMYCIN RECTAL SCH ×4 (01:48→18:30)
[2022-08-25] MEDS: VANCOMYCIN 125 MG CAPSULE PO SCH ×4 (03:37→21:43)
[2022-08-25 04:50] LABS: Basophils % 0.5 % (0.0-0.8); Eosinophils # 0.1 10*3/uL (0.0-0.87); Eosinophils % 0.8 % (0.00-10.9); Hematocrit 29.7 VOL% (42.0-52.0); Hemoglobin 9.2 GM/DL (14.0-18.0); Immature Granulocytes % 2.2 %; Immature Granulocytes Absolute 0.19 #; Lymphocytes # 0.9 10*3/uL (1.4-4.0); Lymphocytes % 9.8 % (21.2-54.2); Mean Corpuscular Volume 83.2 FL (87-102); Mean Platelet Volume 8.4 FL (9.6-12.0); Monocytes # 0.9 10*3/uL (0.11-0.8); Monocytes % 9.8 % (1.7-12.7); Neutrophils % 76.9 % (38.7-73.9); Platelet Count 422 T/CUMM (130-400); Red Blood Count 3.57 MC/CUMM (3.8-5.5); Red Cell Distribution Width 19.3 % (9.3-17.3); White Blood Count 8.63 T/CUMM (4-12)
[2022-08-25 05:20] LABS: Alanine Aminotransferase 21 U/L (16-61); Albumin 0.8 G/DL (3.4-5.0); Alkaline Phosphatase 109 U/L (45-117); Aspartate Amino Transferase 13 U/L (0-37); Bilirubin,Total < 0.39 MG/DL (0.20-1.00); Blood Urea Nitrogen 14 MG/DL (7-18); Calcium 8.6 MG/DL (8.5-10.1); Carbon Dioxide 22 MMOL/L (21-32); Chloride 110 MMOL/L (98-107); Glucose 117 MG/DL (74-106); Osmolality,Calculated 280.4 MOS/KG (273-304); Potassium 4.3 MMOL/L (3.5-5.1); Sodium 140 MMOL/L (136-145); Total Protein 5.8 G/DL (6.4-8.2)
[2022-08-25] MEDS: BACILLUS COAGULANS CAPLET PO SCH ×2 (09:30→21:43)
[2022-08-25] MEDS: POTASSIUM PHOS/SOD PHOS 250 MG TABLET PO SCH (09:30)
[2022-08-25] MEDS: TAMSULOSIN 0.4 MG CAPSULE PO SCH ×2 (09:30→21:43)
[2022-08-25] MEDS: PANTOPRAZOLE 40 MG VIAL IV SCH (09:30)
[2022-08-25] MEDS: HYDROmorphone PCA 30 MG/30 ML SYRINGE IV SCH (11:50)
[2022-08-25] MEDS: ENOXAPARIN 40 MG/0.4 ML SYRINGE SUBCUT SCH (21:43)
[2022-08-26] MEDS: oxyCODONE/ACETAMINOPHEN 5-325 MG TABLET PO PRN ×3 (00:54→18:38)
[2022-08-26] MEDS: VANCOMYCIN RECTAL SCH ×4 (01:36→18:38)
[2022-08-26] MEDS: [UNRECOGNIZED DRUG - OTHER] RECTAL SCH ×4 (01:36→18:38)
[2022-08-26] MEDS: VANCOMYCIN 125 MG CAPSULE PO SCH ×4 (03:49→21:25)
[2022-08-26] MEDS: POTASSIUM PHOS/SOD PHOS 250 MG TABLET PO SCH (10:18)
[2022-08-26] MEDS: PANTOPRAZOLE 40 MG VIAL IV SCH (10:18)
[2022-08-26] MEDS: BACILLUS COAGULANS CAPLET PO SCH ×2 (10:18→21:25)
[2022-08-26] MEDS: TAMSULOSIN 0.4 MG CAPSULE PO SCH ×2 (10:18→21:25)
[2022-08-26] MEDS: MORPHINE ER 30 MG TABLET PO SCH ×2 (11:58→23:49)
[2022-08-26] MEDS: HYDROmorphone PCA 30 MG/30 ML SYRINGE IV SCH (14:54)
[2022-08-26] MEDS: ENOXAPARIN 40 MG/0.4 ML SYRINGE SUBCUT SCH (21:26)
[2022-08-27] MEDS: VANCOMYCIN RECTAL SCH ×4 (01:40→18:50)
[2022-08-27] MEDS: [UNRECOGNIZED DRUG - OTHER] RECTAL SCH ×4 (01:40→18:50)
[2022-08-27] MEDS: oxyCODONE/ACETAMINOPHEN 5-325 MG TABLET PO PRN ×4 (01:42→18:13)
[2022-08-27] MEDS: VANCOMYCIN 125 MG CAPSULE PO SCH ×4 (03:41→21:17)
[2022-08-27] MEDS: POTASSIUM PHOS/SOD PHOS 250 MG TABLET PO SCH (08:47)
[2022-08-27] MEDS: BACILLUS COAGULANS CAPLET PO SCH ×2 (08:47→21:18)
[2022-08-27] MEDS: PANTOPRAZOLE 40 MG VIAL IV SCH (08:47)
[2022-08-27] MEDS: TAMSULOSIN 0.4 MG CAPSULE PO SCH ×2 (08:47→21:18)
[2022-08-27] MEDS: MORPHINE ER 30 MG TABLET PO SCH (11:15)
[2022-08-27] MEDS: HYDROmorphone PCA 30 MG/30 ML SYRINGE IV SCH ×2 (12:40→15:46)
[2022-08-27] MEDS: ENOXAPARIN 40 MG/0.4 ML SYRINGE SUBCUT SCH (21:24)
[2022-08-28] MEDS: oxyCODONE/ACETAMINOPHEN 5-325 MG TABLET PO PRN ×4 (00:45→19:14)
[2022-08-28] MEDS: VANCOMYCIN RECTAL SCH ×4 (01:30→19:15)
[2022-08-28] MEDS: [UNRECOGNIZED DRUG - OTHER] RECTAL SCH ×4 (01:30→19:15)
[2022-08-28] MEDS: VANCOMYCIN 125 MG CAPSULE PO SCH ×4 (02:36→21:27)
[2022-08-28] MEDS: POTASSIUM PHOS/SOD PHOS 250 MG TABLET PO SCH (09:52)
[2022-08-28] MEDS: BACILLUS COAGULANS CAPLET PO SCH ×2 (09:52→21:27)
[2022-08-28] MEDS: TAMSULOSIN 0.4 MG CAPSULE PO SCH ×2 (09:52→21:27)
[2022-08-28] MEDS: PANTOPRAZOLE 40 MG VIAL IV SCH (09:53)
[2022-08-28] MEDS: HYDROmorphone PCA 30 MG/30 ML SYRINGE IV SCH (18:39)
[2022-08-28] MEDS: ENOXAPARIN 40 MG/0.4 ML SYRINGE SUBCUT SCH (21:27)
[2022-08-29] MEDS: oxyCODONE/ACETAMINOPHEN 5-325 MG TABLET PO PRN ×5 (00:40→19:50)
[2022-08-29] MEDS: VANCOMYCIN RECTAL SCH ×4 (01:23→19:50)
[2022-08-29] MEDS: [UNRECOGNIZED DRUG - OTHER] RECTAL SCH ×4 (01:23→19:50)
[2022-08-29] MEDS: VANCOMYCIN 125 MG CAPSULE PO SCH ×4 (03:24→20:36)
[2022-08-29 06:06] LABS: Basophils # 0.1 10*3/uL (0.0-0.2); Basophils % 1.5 % (0.0-0.8); Eosinophils # 0.1 10*3/uL (0.0-0.87); Eosinophils % 2.2 % (0.00-10.9); Hematocrit 29.9 VOL% (42.0-52.0); Hemoglobin 9.1 GM/DL (14.0-18.0); Immature Granulocytes % 1.2 %; Immature Granulocytes Absolute 0.05 #; Lymphocytes # 0.7 10*3/uL (1.4-4.0); Lymphocytes % 15.8 % (21.2-54.2); Mean Corpuscular HGB Conc 30.4 GM/DL (32-36); Mean Platelet Volume 8.5 FL (9.6-12.0); Monocytes # 0.7 10*3/uL (0.11-0.8); Neutrophils % 61.3 % (38.7-73.9); Platelet Count 404 T/CUMM (130-400); Red Blood Count 3.56 MC/CUMM (3.8-5.5); Red Cell Distribution Width 19.2 % (9.3-17.3); White Blood Count 4.12 T/CUMM (4-12)
[2022-08-29 06:21] LABS: Calcium 8.9 MG/DL (8.5-10.1); Osmolality,Calculated 280.3 MOS/KG (273-304); Potassium 3.9 MMOL/L (3.5-5.1)
[2022-08-29 06:32] LABS: Eosinophils 2 % (0-10); Hypochromia Slight; Lymphocytes 10 % (20-55); Microcytosis Slight; Platelet Estimate Adequate; Total Cells Counted 100
[2022-08-29] MEDS: BACILLUS COAGULANS CAPLET PO SCH ×2 (08:03→20:36)
[2022-08-29] MEDS: POTASSIUM PHOS/SOD PHOS 250 MG TABLET PO SCH (08:03)
[2022-08-29] MEDS: PANTOPRAZOLE 40 MG VIAL IV SCH (08:03)
[2022-08-29] MEDS: TAMSULOSIN 0.4 MG CAPSULE PO SCH ×2 (08:04→20:36)
[2022-08-29] MEDS: HYDROmorphone PCA 30 MG/30 ML SYRINGE IV SCH (13:00)
[2022-08-29] MEDS: ENOXAPARIN 40 MG/0.4 ML SYRINGE SUBCUT SCH (20:36)
[2022-08-30] MEDS: [UNRECOGNIZED DRUG - OTHER] RECTAL SCH ×5 (00:39→23:55)
[2022-08-30] MEDS: VANCOMYCIN RECTAL SCH ×5 (00:39→23:55)
[2022-08-30] MEDS: oxyCODONE/ACETAMINOPHEN 5-325 MG TABLET PO PRN ×5 (00:55→22:25)
[2022-08-30] MEDS: VANCOMYCIN 125 MG CAPSULE PO SCH ×4 (04:20→22:00)
[2022-08-30] MEDS: HYDROmorphone PCA 30 MG/30 ML SYRINGE IV SCH ×2 (05:00→15:58)
[2022-08-30] MEDS: POTASSIUM PHOS/SOD PHOS 250 MG TABLET PO SCH (08:27)
[2022-08-30] MEDS: BACILLUS COAGULANS CAPLET PO SCH ×2 (08:27→22:00)
[2022-08-30] MEDS: TAMSULOSIN 0.4 MG CAPSULE PO SCH ×2 (08:27→22:00)
[2022-08-30] MEDS: PANTOPRAZOLE 40 MG VIAL IV SCH (08:28)
[2022-08-30] MEDS ORDERED: HYDROmorphone 1 MG/1 ML SYRINGE IV PRN (12:50)
[2022-08-30] MEDS: ENOXAPARIN 40 MG/0.4 ML SYRINGE SUBCUT SCH (22:01)
[2022-08-31] MEDS: VANCOMYCIN 125 MG CAPSULE PO SCH ×3 (03:35→14:06)
[2022-08-31] MEDS: oxyCODONE/ACETAMINOPHEN 5-325 MG TABLET PO PRN ×2 (06:08→10:43)
[2022-08-31] MEDS: [UNRECOGNIZED DRUG - OTHER] RECTAL SCH ×2 (06:09→12:20)
[2022-08-31] MEDS: VANCOMYCIN RECTAL SCH ×2 (06:09→12:20)
[2022-08-31] MEDS: TAMSULOSIN 0.4 MG CAPSULE PO SCH (09:11)
[2022-08-31] MEDS: PANTOPRAZOLE 40 MG VIAL IV SCH (09:11)
[2022-08-31] MEDS: POTASSIUM PHOS/SOD PHOS 250 MG TABLET PO SCH (09:11)
[2022-08-31] MEDS: BACILLUS COAGULANS CAPLET PO SCH (09:11)
[2022-08-31 12:37] VITALS: BP 109/68
== END 2022-08-31 17:28 | disposition home health service (06) | DRG 329 ==
LOC: N.ED 07:43 → N.EDINP 10:51 → N.TELES 13:31 → N.ICU 08-15 19:54 → N.3E 08-17 20:20
PROVIDERS: ADMIT Surgery; ATTEND Surgery